=== PATIENT | male | born 1985 | race Caucasian/White ===

== ENCOUNTER 2018-11-13 17:44 | Emergency (ER) | payer SELFPAY ==
[~2018-11-13] VITALS: Ht 172.7 cm; Wt 86.2 kg
[2018-11-13 17:45] VITALS: BP 139/87
[2018-11-13 18:14] LABS: BASO # 0.1 x10^3/uL (0.0-0.2); BASO % 1 % (0-3); EOS # 0.1 x10^3/uL (0.0-0.7); EOS % 1 % (0-3); HEMATOCRIT 39.4 % (39.0-53.0); LYMPH # 1.6 x10^3/uL (1.0-4.8); LYMPH % 38 % (24-48); MEAN CORPUSCULAR HEMOGLOBIN 36 pg (25-35); MEAN CORPUSCULAR HGB CONC 36 g/dL (31-37); MEAN CORPUSCULAR VOLUME 100 fL (79-100); MONO # 0.6 x10^3/uL (0.0-1.1); MONO % 15 % (0-9); NEUT # 1.9 x10^3uL (1.8-7.7); NEUT % 44 % (31-73); PLATELET COUNT 221 x10^3/uL (140-400); RED BLOOD COUNT 3.92 x10^6/uL (4.30-5.70); RED CELL DISTRIBUTION WIDTH 13.7 % (11.5-14.5); WHITE BLOOD COUNT 4.3 x10^3/uL (4.0-11.0)
[2018-11-13 18:21] LABS: BILIRUBIN,URINE NEGATIVE (NEG); CLARITY,URINE CLEAR; COLOR,URINE YELLOW; NITRITE,URINE NEGATIVE (NEG); PROTEIN,URINE NEGATIVE (NEG-TRACE)
[2018-11-13 18:27] LABS: BARBITURATES NEG (NEG); BENZODIAZEPINES NEG (NEG); CANNABINOIDS NEG (NEG); COCAINE NEG (NEG); METHADONE NEG (NEG); OPIATES NEG (NEG); PHENCYCLIDINE NEG (NEG)
[2018-11-13] MEDS ORDERED: ONDANSETRON PF 4 MG/2 ML VIAL. IV ONE (18:30)
[2018-11-13 18:31] LABS: ALBUMIN 3.7 g/dL (3.4-5.0); ALBUMIN/GLOBULIN RATIO 0.9 (1.0-1.7); CREATININE 0.7 mg/dL (0.7-1.3); GFR 129.1; TOTAL BILIRUBIN 0.8 mg/dL (0.2-1.0); TOTAL PROTEIN 7.9 g/dL (6.4-8.2)
[2018-11-13 18:36] LABS: AMPHETAMINE/METHAMPHETAMINE NEG (NEG)
[2018-11-13 18:37] LABS: ACETAMIN < 2 mcg/ml (10-30); ETHANOL 365 mg/dL (0-10); SALIC < 2.8 mg/dL (2.8-20.0)
[2018-11-13 18:39] LABS: POTASSIUM 2.9 mmol/L (3.5-5.1)
[2018-11-13 18:43] LABS: BACTERIA,URINE 0 /HPF (0-FEW); RBC,URINE 0 /HPF (0-2); SQUAMOUS EPITHELIAL CELL,UR FEW /LPF; WBC,URINE 0 /HPF (0-4)
[2018-11-13] MEDS ORDERED: MULTIVIT INFUSN,ADULT 4,VIT K 10 ML, THIAMINE INJ 100 MG, FOLIC ACID INJ 1 MG in IV NOR... IV ONE (19:00)
[2018-11-13] MEDS ORDERED: IV NORMAL SALINE 1000ML BAG 1,000 ML IV ONE (19:15)
[2018-11-13] MEDS ORDERED: POTASSIUM CHLORIDE 20 MEQ TABLET.ER. PO ONE ×2 (19:15→20:00)
--- NOTE | 2018-11-13 19:30 | PHYS DOC ---
Past Medical History Past Medical History: No Pertinent History, Alcoholism (ANTONY MONTAÑO APRN) Past Surgical History: No Surgical History (ANTONY MONTAÑO APRN) Alcohol Use: Heavy Additional Information: 1 PINT OF WHISKEY DAILY Drug Use: None (ANTONY MONTAÑO APRN) Adult General Chief Complaint Chief Complaint: ALCOHOL INTOXICATION HPI HPI Patient is a 33 year old male with history of alcoholism who presents to the ED today to be evaluated after being found intoxicated and sleeping his vehicle by police. Patient is complaining of a mild headache. Denies any other symptoms. He states he drinks heavily. He states he believes he drank half a gallon of vodka today. He states he does not need any help with alcoholism. (ANTONY MONTAÑO APRN) Review of Systems Review of Systems Constitutional: Denies fever or chills [] Eyes: Denies change in visual acuity, redness, or eye pain [] HENT: Denies nasal congestion or sore throat [] Respiratory: Denies cough or shortness of breath [] Cardiovascular: No additional information not addressed in HPI [] GI: Denies abdominal pain, nausea, vomiting, bloody stools or diarrhea [] : Denies dysuria or hematuria [] Musculoskeletal: Denies back pain or joint pain [] Integument: Denies rash or skin lesions [] Neurologic: Denies headache, focal weakness or sensory changes [] Pysch: Alcohol intoxication All other systems were reviewed and found to be within normal limits, except as documented in this note. (ANTONY MONTAÑO APRN) Current Medications Current Medications Current Medications Medications (Trade) Dose Ordered Sig/Toan Start Time Stop Time Status Last Admin Dose Admin Multivitamins 10 ml/Thiamine HCl 100 mg/Folic Acid 1 mg/Sodium Chloride 1,011.2 ml @ 1,000.088 mls/hr 1X ONCE 11/13/18 19:00 11/13/18 19:33 DC 11/13/18 18:17 1,000.088 MLS/HR Ondansetron HCl (Zofran) 4 mg 1X ONCE 11/13/18 18:30 11/13/18 18:31 DC 11/13/18 18:17 4 MG Potassium Chloride (Klor-Con) 40 meq 1X ONCE 11/13/18 20:00 11/13/18 20:00 DC Sodium Chloride 1,000 ml @ 1,000 mls/hr 1X ONCE 11/13/18 19:15 11/13/18 19:33 DC (RUTH YEBOAH DO) Allergies Allergies Allergies Coded Allergies Type Severity Reaction Last Updated Verified No Known Drug Allergies 11/13/18 No (RUTH YEBOAH DO) Physical Exam Physical Exam Constitutional: Well developed, well nourished, no acute distress, non-toxic appearance. [] HENT: Normocephalic, atraumatic, bilateral external ears normal, oropharynx moist, no oral exudates, nose normal. [] Eyes: PERRLA, EOMI, conjunctiva normal, no discharge. [] Neck: Normal range of motion, no tenderness, supple, no stridor. [] Cardiovascular:Heart rate regular rhythm, no murmur [] Lungs & Thorax: Bilateral breath sounds clear to auscultation [] Abdomen: Bowel sounds normal, soft, no tenderness, no masses, no pulsatile masses. [] Skin: Warm, dry, no erythema, no rash. [] Back: No tenderness, no CVA tenderness. [] Extremities: No tenderness, no cyanosis, no clubbing, ROM intact, no edema. [] Neurologic: Alert and oriented X 3, normal motor function, normal sensory function, no focal deficits noted. Cranial nerves II-XII intact Psychologic: Flat affect. Patient appears intoxicated, smells of alcohol. (TRACEUNGANTONY Parker APRN) Current Patient Data Vital Signs Vital Signs Date Time Temp Pulse Resp B/P (MAP) Pulse Ox O2 Delivery O2 Flow Rate FiO2 11/13/18 19:04 108 16 137/91 (106) 96 Room Air 11/13/18 17:45 98.3 98.3 (RUTH YEBOAH DO) Lab Values Laboratory Tests Test 11/13/18 18:04 11/13/18 18:11 White Blood Count 4.3 x10^3/uL (4.0-11.0) Red Blood Count 3.92 x10^6/uL (4.30-5.70) L Hemoglobin 14.0 g/dL (13.0-17.5) Hematocrit 39.4 % (39.0-53.0) Mean Corpuscular Volume 100 fL (79-100) Mean Corpuscular Hemoglobin 36 pg (25-35) H Mean Corpuscular Hemoglobin Concent 36 g/dL (31-37) Red Cell Distribution Width 13.7 % (11.5-14.5) Platelet Count 221 x10^3/uL (140-400) Neutrophils (%) (Auto) 44 % (31-73) Lymphocytes (%) (Auto) 38 % (24-48) Monocytes (%) (Auto) 15 % (0-9) H Eosinophils (%) (Auto) 1 % (0-3) Basophils (%) (Auto) 1 % (0-3) Neutrophils # (Auto) 1.9 x10^3uL (1.8-7.7) Lymphocytes # (Auto) 1.6 x10^3/uL (1.0-4.8) Monocytes # (Auto) 0.6 x10^3/uL (0.0-1.1) Eosinophils # (Auto) 0.1 x10^3/uL (0.0-0.7) Basophils # (Auto) 0.1 x10^3/uL (0.0-0.2) Sodium Level 142 mmol/L (136-145) Potassium Level 2.9 mmol/L (3.5-5.1) *L Chloride Level 101 mmol/L (98-107) Carbon Dioxide Level 29 mmol/L (21-32) Anion Gap 12 (6-14) Blood Urea Nitrogen 4 mg/dL (8-26) L Creatinine 0.7 mg/dL (0.7-1.3) Estimated GFR (Cockcroft-Gault) 129.1 BUN/Creatinine Ratio 6 (6-20) Glucose Level 109 mg/dL (70-99) H Calcium Level 9.0 mg/dL (8.5-10.1) Total Bilirubin 0.8 mg/dL (0.2-1.0) Aspartate Amino Transferase (AST) 340 U/L (15-37) H Alanine Aminotransferase (ALT) 363 U/L (16-63) H Alkaline Phosphatase 98 U/L (46-116) Total Protein 7.9 g/dL (6.4-8.2) Albumin 3.7 g/dL (3.4-5.0) Albumin/Globulin Ratio 0.9 (1.0-1.7) L Lipase 239 U/L (73-393) Salicylates Level < 2.8 mg/dL (2.8-20.0) L Salicylate Last Dose Date Salicylate Last Dose Time Acetaminophen Level < 2 mcg/ml (10-30) L Acetaminophen Last Dose Date Acetaminophen Last Dose Time Ethyl Alcohol Level 365 mg/dL (0-10) H Urine Collection Type Unknown Urine Color Yellow Urine Clarity Clear Urine pH 6.0 Urine Specific [place] <=1.005 Urine Protein Negative mg/dL (NEG-TRACE) Urine Glucose (UA) Negative mg/dL (NEG) Urine Ketones (Stick) Negative mg/dL (NEG) Urine Blood Negative (NEG) Urine Nitrite Negative (NEG) Urine Bilirubin Negative (NEG) Urine Urobilinogen Dipstick 1.0 mg/dL (0.2 mg/dL) Urine Leukocyte Esterase Negative (NEG) Urine RBC 0 /HPF (0-2) Urine WBC 0 /HPF (0-4) Urine Squamous Epithelial Cells Few /LPF Urine Bacteria 0 /HPF (0-FEW) Urine Opiates Screen Neg (NEG) Urine Methadone Screen Neg (NEG) Urine Barbiturates Neg (NEG) Urine Phencyclidine Screen Neg (NEG) Urine Amphetamine/Methamphetamine Neg (NEG) Urine Benzodiazepines Screen Neg (NEG) Urine Cocaine Screen Neg (NEG) Urine Cannabinoids Screen Neg (NEG) Urine Ethyl Alcohol Pos (NEG) Laboratory Tests 11/13/18 18:04 Laboratory Tests 11/13/18 18:04 (RUTH YEBOAH DO) EKG EKG [] (ANTONY MONTAÑO APRN) Radiology/Procedures Radiology/Procedures [] (ANTONY MONTAÑO APRN) Course & Med Decision Making Course & Med Decision Making Pertinent Labs and Imaging studies reviewed. (See chart for details) This is a 33-year-old male patient who presents to the ED today to be evaluated for alcohol intoxication. He was found intoxicated asleep in his vehicle by police. On arrival to the ED patient appears intoxicated. Banana bag was ordered CBC with no acute findings, CMP with potassium of 2.9. Given oral potassium replacement in the ED first dose 40 mEq. Another dose ordered. Blood alcohol level 365. CMP with AST of 340 ALT of 363. Patient is awake requesting to leave AMA. He is alert, oriented, able to make his own decisions. He signed out AMA and left. (ANTONY MONTAÑO APRN) Dragon Disclaimer Dragon Disclaimer This electronic medical record was generated, in whole or in part, using a voice recognition dictation system. (ANTONY MONTAÑO APRN) Departure Departure Impression: Primary Impression: Alcohol intoxication Additional Impressions: Hypokalemia Transaminitis Disposition: AGAINST MEDICAL ADVICE Condition: STABLE Attending Signature Attending Signature I have reviewed the PA/WELDER RAILCAR MECHANIC's note and plan of care. I was available for consulta tion as needed during the patient's visit in the emergency department. I agree with the clinical impression, plan, and disposition. (RUTH YEBOAH DO) Problem Qualifiers Primary Impression: Alcohol intoxication Complication of substance-induced condition: with unspecified complication Qualified Codes: F10.929 - Alcohol use, unspecified with intoxication, unspecified ANTONY MONTAÑO APRN Nov 13, 2018 19:30 RUTH YEBOAH DO Nov 14, 2018 05:25
== END 2018-11-13 19:23 | disposition left against medical advice (07) ==
LOC: ER 17:44
DX: F10.229 Alcohol dependence with intoxication, unspecified (principal); R51 Headache; R74.0 Nonspecific elevation of levels of transaminase and lactic acid dehydrogenase [LDH]; E87.6 Hypokalemia; Y90.8 Blood alcohol level of 240 mg/100 ml or more
CPT/HCPCS: 36415; 80053; 80307; 80329; 81001; 83690; 85025; 96365; 96375; 99284; G0480; J2405; J7030

== ENCOUNTER 2019-02-23 16:19 | Inpatient (IN) | payer SELFPAY ==
[~2019-02-23] VITALS: Ht 170.2 cm; Wt 81.8 kg
[2019-02-23 16:44] LABS: CLARITY,URINE CLEAR; COLOR,URINE ORANGE
[2019-02-23] MEDS ORDERED: FAMOTIDINE 20 MG/2 ML VIAL IVP ONE (16:45)
[2019-02-23] MEDS ORDERED: ONDANSETRON PF 4 MG/2 ML VIAL. IVP ONE (16:45)
[2019-02-23 16:49] LABS: AMPHETAMINE/METHAMPHETAMINE NEG (NEG); BARBITURATES NEG (NEG); BENZODIAZEPINES NEG (NEG); CANNABINOIDS NEG (NEG); COCAINE NEG (NEG); METHADONE NEG (NEG); OPIATES NEG (NEG); PHENCYCLIDINE NEG (NEG)
[2019-02-23 16:57] LABS: BACTERIA,URINE MOD /HPF (0-FEW); RBC,URINE 0 /HPF (0-2); SQUAMOUS EPITHELIAL CELL,UR MANY /LPF; WBC,URINE OCC /HPF (0-4)
[2019-02-23] MEDS ORDERED: MULTIVIT INFUSN,ADULT 4,VIT K 10 ML, THIAMINE INJ 100 MG, FOLIC ACID INJ 1 MG in IV NOR... IV ONE (17:00)
[2019-02-23 17:02] LABS: BILIRUBIN,URINE LARGE (NEG)
[2019-02-23 17:03] LABS: PH,URINE 7.5
[2019-02-23 17:04] LABS: NITRITE,URINE NEGATIVE (NEG); PROTEIN,URINE NEGATIVE (NEG-TRACE)
[2019-02-23 17:16] LABS: BASO % 1 % (0-3); EOS % 0 % (0-3); HEMATOCRIT 37.4 % (39.0-53.0); LYMPH # 0.9 x10^3/uL (1.0-4.8); LYMPH % 11 % (24-48); MEAN CORPUSCULAR HEMOGLOBIN 35 pg (25-35); MEAN CORPUSCULAR HGB CONC 35 g/dL (31-37); MEAN CORPUSCULAR VOLUME 100 fL (79-100); MONO # 1.6 x10^3/uL (0.0-1.1); MONO % 20 % (0-9); NEUT # 5.5 x10^3/uL (1.8-7.7); NEUT % 68 % (31-73); PLATELET COUNT 76 x10^3/uL (140-400); RED BLOOD COUNT 3.76 x10^6/uL (4.30-5.70); RED CELL DISTRIBUTION WIDTH 14.8 % (11.5-14.5); WHITE BLOOD COUNT 8.1 x10^3/uL (4.0-11.0)
[2019-02-23 17:26] LABS: ACETAMIN < 2.0 mcg/ml (10-30); ETHANOL < 10 mg/dL (0-10)
[2019-02-23 17:27] LABS: SALIC < 0.2 mg/dL (2.8-20.0)
[2019-02-23 17:28] LABS: ALBUMIN 2.7 g/dL (3.4-5.0); ALBUMIN/GLOBULIN RATIO 0.6 (1.0-1.7); CALCIUM 9.9 mg/dL (8.5-10.1); CREATININE 0.6 mg/dL (0.7-1.3); GFR 154.2; TOTAL BILIRUBIN 11.3 mg/dL (0.2-1.0); TOTAL PROTEIN 7.6 g/dL (6.4-8.2)
[2019-02-23 17:33] LABS: POTASSIUM 2.7 mmol/L (3.5-5.1)
[2019-02-23 17:44] LABS: % ATYL 1 % (0-0); % BANDS 13 % (0-9); % LYMPHS 9 % (24-48); % MONOS 12 % (0-10); % SEGS 65 % (35-66); PLT ESTIMATE DECREASED (ADEQUATE); TOXIC VACUOLATION SLIGHT
[2019-02-23] MEDS ORDERED: IOHEXOL 300 MG/ML 100ML VIAL. IV ONE (17:45)
[2019-02-23] MEDS ORDERED: CONTRAST GIVEN. MC PRN (17:45)
[2019-02-23] MEDS ORDERED: ONDANSETRON PF 4 MG/2 ML VIAL. IV PRN ×2 (18:00→18:15)
[2019-02-23] MEDS ORDERED: POTASSIUM CL 20MEQ D5-0.9%NACL 1,000 ML IV ONE (18:00)
[2019-02-23] MEDS ORDERED: MORPHINE SULFATE 4 MG/ML VIAL. IV PRN (18:00)
[2019-02-23 18:04] LABS: PROTHROMBIN TIME PATIENT 14.3 SEC (11.7-14.0)
--- NOTE | 2019-02-23 18:06 | PDOC1 ---
History and Physical Date of Admission Date of Admission DATE: 02/23/19 TIME: 18:06 Identification/Chief Complaint Chief Complaint SEEN IN ER , 33 year old male with history of alcoholism who presents to the ED today with multiple complaints. Patient states since Thursday his had tremors.on Thursday but he states // he drank heavily. He states he stopped drinking on Thursday and noted his urine was yellow and his skin was turning yellow. He states his been losing weight because his drinking more than normal. He states today he noted his urine was more yellow and his eyes were even yellow. Denies any abdominal pain. Denies any nausea vomiting. He states his been waiting for bed at the alcohol treatment facility. He reports he drank 2 beers yesterday. HEAVY DRINKING BEGAN AFTER HIS FATHER IN 2014, AND WELL THIS YEAR AFTER HIS DIVORCE AND JOB LOSS Past Medical History Psych: Anxiety, Addictions Dermatology: No pertinent hx Family History Family History: Alcohol Abuse, Other (alcohol abuse) Family History: Parent Social History Smoke: No ALCOHOL: heavy Drugs: None Current Medications Current Medications Current Medications Multivitamins 10 ml/Thiamine HCl 100 mg/Folic Acid 1 mg/Sodium Chloride 1,011.2 ml @ 1,000.088 mls/hr 1X ONCE IV Last administered on 02/23/19at 17:10; Start 02/23/19 at 17:00; Stop 02/23/19 at 18:00; Status DC Ondansetron HCl (Zofran) 4 mg 1X ONCE IVP Last administered on 02/23/19at 17:13; Start 02/23/19 at 16:45; Stop 02/23/19 at 16:46; Status DC Famotidine (Pepcid Vial) 20 mg 1X ONCE IVP Last administered on 02/23/19at 17:14; Start 02/23/19 at 16:45; Stop 02/23/19 at 16:46; Status DC Potassium Chloride (Klor-Con) 40 meq 1X ONCE PO ; Start 02/23/19 at 18:15; Stop 02/23/19 at 18:16 Iohexol (Omnipaque 300 Mg/ml) 75 ml 1X ONCE IV Last administered on 02/23/19at 17:51; Start 02/23/19 at 17:45; Stop 02/23/19 at 17:46; Status DC Info (CONTRAST GIVEN -- Rx MONITORING) 1 each PRN DAILY PRN MC SEE COMMENTS; Start 02/23/19 at 17:45; Stop 02/25/19 at 17:44 Ondansetron HCl (Zofran) 4 mg PRN Q8HRS PRN IV NAUSEA/VOMITING; Start 02/23/19 at 18:00; Stop 02/24/19 at 17:59 Morphine Sulfate (Morphine Sulfate) 4 mg PRN Q2HR PRN IV PAIN; Start 02/23/19 at 18:00; Stop 02/24/19 at 17:59 Potassium Chloride/Dextrose/ Sod Cl 1,000 ml @ 75 mls/hr 1X ONCE IV ; Start 02/23/19 at 18:00; Stop 02/24/19 at 07:19 Lorazepam (Ativan Inj) 2 mg PRN Q15MIN PRN IV SEE COMMENTS; Start 02/23/19 at 18:00 Allergies Allergies: Coded Allergies: No Known Drug Allergies (Unverified , 11/13/18) ROS Review of System Review of Systems Review of Systems Constitutional: Reports weight loss. Denies fever or chills [] Eyes: Denies change in visual acuity, redness, or eye pain [] HENT: Denies nasal congestion or sore throat [] Respiratory: Denies cough or shortness of breath [] Cardiovascular: No additional information not addressed in HPI [] GI: Denies abdominal pain, nausea, vomiting, bloody stools or diarrhea [] : Denies dysuria or hematuria [] Musculoskeletal: Denies back pain or joint pain [] Integument: Reports jaundice. Neurologic: Denies headache, focal weakness or sensory changes [] Psych: Reports alcoholism 14 PT systems were reviewed and found to be within normal limits, except as documented . General: YES: Fatigue, Malaise PSYCHOLOGICAL ROS: YES: Anxiety; No: Behavioral Disorder, Concentration difficultie, Decreased libido, Depression, Disorientation, Hallucinations, Hostility, Irritablity, Memory difficulties, Mood Swings, Obsessive thoughts, Physical abuse, Sexual abuse, Sleep disturbances, Suicidal ideation, Other ALLERGY AND IMMUNOLOGY: No: Hives, Insect Bite Sensitivity, Itchy/Watery Eyes, Nasal Congestion, Post Nasal Drip, Seasonal Allergies, Other Respiratory: No: Cough, Hemoptysis, Orthopnea, Pleuritic Pain, Shortness of breath, SOB with excertion, Sputum Changes, Stridor, Tachypnea, Wheezing, Other Gastrointestinal: Yes Nausea, Yes Other (dark stools) Genitourinary: YES Dysuria Neurological: Yes Behavorial Changes Skin: Yes Dry Skin Physical Exam General: Alert, Oriented X3, Cooperative, No acute distress HEENT: Atraumatic, PERRLA Lungs: Clear to auscultation, Normal air movement Heart: S1S2, RRR, no thrills, no rubs Breasts: Not examined Abdomen: Normal bowel sounds, Soft Rectal Exam: not examined PELVIC: Examination not indicated Extremities: No cyanosis, No edema Skin: No breakdown Neuro: Normal speech, Strength at 5/5 X4 ext, Sensation intact, Cranial nerves 3-12 NL Psych/Mental Status: Mental status NL, Mood NL Vitals Vitals Vital Signs Date Time Temp Pulse Resp B/P (MAP) Pulse Ox O2 Delivery O2 Flow Rate FiO2 02/23/19 16:25 99.2 127 18 130/81 (97) 94 Room Air 99.2 Labs Labs Laboratory Tests Test 02/23/19 16:30 02/23/19 17:00 Urine Collection Type Unknown Urine Color [place] Urine Clarity Clear Urine pH 7.5 Urine Specific [place] 1.015 Urine Protein Negative mg/dL (NEG-TRACE) Urine Glucose (UA) Negative mg/dL (NEG) Urine Ketones (Stick) Trace mg/dL (NEG) Urine Blood Negative (NEG) Urine Nitrite Negative (NEG) Urine Bilirubin Large (NEG) Urine Urobilinogen Dipstick 1.0 mg/dL (0.2 mg/dL) Urine Leukocyte Esterase Small (NEG) Urine RBC 0 /HPF (0-2) Urine WBC Occ /HPF (0-4) Urine Squamous Epithelial Cells Many /LPF Urine Bacteria Mod /HPF (0-FEW) Urine Mucus Marked /LPF Urine Opiates Screen Neg (NEG) Urine Methadone Screen Neg (NEG) Urine Barbiturates Neg (NEG) Urine Phencyclidine Screen Neg (NEG) Urine Amphetamine/Methamphetamine Neg (NEG) Urine Benzodiazepines Screen Neg (NEG) Urine Cocaine Screen Neg (NEG) Urine Cannabinoids Screen Neg (NEG) Urine Ethyl Alcohol Neg (NEG) White Blood Count 8.1 x10^3/uL (4.0-11.0) Red Blood Count 3.76 x10^6/uL (4.30-5.70) Hemoglobin 13.0 g/dL (13.0-17.5) Hematocrit 37.4 % (39.0-53.0) Mean Corpuscular Volume 100 fL (79-100) Mean Corpuscular Hemoglobin 35 pg (25-35) Mean Corpuscular Hemoglobin Concent 35 g/dL (31-37) Red Cell Distribution Width 14.8 % (11.5-14.5) Platelet Count 76 x10^3/uL (140-400) Neutrophils (%) (Auto) 68 % (31-73) Lymphocytes (%) (Auto) 11 % (24-48) Monocytes (%) (Auto) 20 % (0-9) Eosinophils (%) (Auto) 0 % (0-3) Basophils (%) (Auto) 1 % (0-3) Neutrophils # (Auto) 5.5 x10^3/uL (1.8-7.7) Lymphocytes # (Auto) 0.9 x10^3/uL (1.0-4.8) Monocytes # (Auto) 1.6 x10^3/uL (0.0-1.1) Eosinophils # (Auto) 0.0 x10^3/uL (0.0-0.7) Basophils # (Auto) 0.0 x10^3/uL (0.0-0.2) Segmented Neutrophils % 65 % (35-66) Band Neutrophils % 13 % (0-9) Lymphocytes % 9 % (24-48) Atypical Lymphocytes % (Manual) 1 % (0-0) Monocytes % 12 % (0-10) Toxic Vacuolation Slight Platelet Estimate Decreased (ADEQUATE) Sodium Level 131 mmol/L (136-145) Potassium Level 2.7 mmol/L (3.5-5.1) Chloride Level 92 mmol/L (98-107) Carbon Dioxide Level 27 mmol/L (21-32) Anion Gap 12 (6-14) Blood Urea Nitrogen 6 mg/dL (8-26) Creatinine 0.6 mg/dL (0.7-1.3) Estimated GFR (Cockcroft-Gault) 154.2 BUN/Creatinine Ratio 10 (6-20) Glucose Level 102 mg/dL (70-99) Calcium Level 9.9 mg/dL (8.5-10.1) Total Bilirubin 11.3 mg/dL (0.2-1.0) Aspartate Amino Transf (AST/SGOT) 326 U/L (15-37) Alanine Aminotransferase (ALT/SGPT) 141 U/L (16-63) Alkaline Phosphatase 304 U/L (46-116) Total Protein 7.6 g/dL (6.4-8.2) Albumin 2.7 g/dL (3.4-5.0) Albumin/Globulin Ratio 0.6 (1.0-1.7) Lipase 405 U/L (73-393) Salicylates Level < 0.2 mg/dL (2.8-20.0) Salicylate Last Dose Date Unk Salicylate Last Dose Time Unk Acetaminophen Level < 2.0 mcg/ml (10-30) Acetaminophen Last Dose Date Unk Acetaminophen Last Dose Time Unk Ethyl Alcohol Level < 10 mg/dL (0-10) Laboratory Tests Test 02/23/19 16:30 02/23/19 17:00 Urine Collection Type Unknown Urine Color [place] Urine Clarity Clear Urine pH 7.5 Urine Specific [place] 1.015 Urine Protein Negative mg/dL (NEG-TRACE) Urine Glucose (UA) Negative mg/dL (NEG) Urine Ketones (Stick) Trace mg/dL (NEG) Urine Blood Negative (NEG) Urine Nitrite Negative (NEG) Urine Bilirubin Large (NEG) Urine Urobilinogen Dipstick 1.0 mg/dL (0.2 mg/dL) Urine Leukocyte Esterase Small (NEG) Urine RBC 0 /HPF (0-2) Urine WBC Occ /HPF (0-4) Urine Squamous Epithelial Cells Many /LPF Urine Bacteria Mod /HPF (0-FEW) Urine Mucus Marked /LPF Urine Opiates Screen Neg (NEG) Urine Methadone Screen Neg (NEG) Urine Barbiturates Neg (NEG) Urine Phencyclidine Screen Neg (NEG) Urine Amphetamine/Methamphetamine Neg (NEG) Urine Benzodiazepines Screen Neg (NEG) Urine Cocaine Screen Neg (NEG) Urine Cannabinoids Screen Neg (NEG) Urine Ethyl Alcohol Neg (NEG) White Blood Count 8.1 x10^3/uL (4.0-11.0) Red Blood Count 3.76 x10^6/uL (4.30-5.70) Hemoglobin 13.0 g/dL (13.0-17.5) Hematocrit 37.4 % (39.0-53.0) Mean Corpuscular Volume 100 fL (79-100) Mean Corpuscular Hemoglobin 35 pg (25-35) Mean Corpuscular Hemoglobin Concent 35 g/dL (31-37) Red Cell Distribution Width 14.8 % (11.5-14.5) Platelet Count 76 x10^3/uL (140-400) Neutrophils (%) (Auto) 68 % (31-73) Lymphocytes (%) (Auto) 11 % (24-48) Monocytes (%) (Auto) 20 % (0-9) Eosinophils (%) (Auto) 0 % (0-3) Basophils (%) (Auto) 1 % (0-3) Neutrophils # (Auto) 5.5 x10^3/uL (1.8-7.7) Lymphocytes # (Auto) 0.9 x10^3/uL (1.0-4.8) Monocytes # (Auto) 1.6 x10^3/uL (0.0-1.1) Eosinophils # (Auto) 0.0 x10^3/uL (0.0-0.7) Basophils # (Auto) 0.0 x10^3/uL (0.0-0.2) Segmented Neutrophils % 65 % (35-66) Band Neutrophils % 13 % (0-9) Lymphocytes % 9 % (24-48) Atypical Lymphocytes % (Manual) 1 % (0-0) Monocytes % 12 % (0-10) Toxic Vacuolation Slight Platelet Estimate Decreased (ADEQUATE) Sodium Level 131 mmol/L (136-145) Potassium Level 2.7 mmol/L (3.5-5.1) Chloride Level 92 mmol/L (98-107) Carbon Dioxide Level 27 mmol/L (21-32) Anion Gap 12 (6-14) Blood Urea Nitrogen 6 mg/dL (8-26) Creatinine 0.6 mg/dL (0.7-1.3) Estimated GFR (Cockcroft-Gault) 154.2 BUN/Creatinine Ratio 10 (6-20) Glucose Level 102 mg/dL (70-99) Calcium Level 9.9 mg/dL (8.5-10.1) Total Bilirubin 11.3 mg/dL (0.2-1.0) Aspartate Amino Transf (AST/SGOT) 326 U/L (15-37) Alanine Aminotransferase (ALT/SGPT) 141 U/L (16-63) Alkaline Phosphatase 304 U/L (46-116) Total Protein 7.6 g/dL (6.4-8.2) Albumin 2.7 g/dL (3.4-5.0) Albumin/Globulin Ratio 0.6 (1.0-1.7) Lipase 405 U/L (73-393) Salicylates Level < 0.2 mg/dL (2.8-20.0) Salicylate Last Dose Date Unk Salicylate Last Dose Time Unk Acetaminophen Level < 2.0 mcg/ml (10-30) Acetaminophen Last Dose Date Unk Acetaminophen Last Dose Time Unk Ethyl Alcohol Level < 10 mg/dL (0-10) Images Images EX: M EXAM STATUS: REG ER ORD. PHYSICIAN: ANTONY MONTAÑO APRN REASON: r/o pancreatitis, elevated lipase PROCEDURE: CT ABD PELV W/ IV CONTRST ONLY CT abdomen and pelvis with contrast PQRS statement: CT scans at this facility use dose reduction including either automated exposure control, iterative reconstructions, and /or weight based radiation dosing via mA and kV modification when appropriate to reduce radiation dose to as low as reasonably achievable. HISTORY: Pancreatitis, elevated lipase. TECHNIQUE: Helical CT imaging abdomen and pelvis with 75 mL Omnipaque 300 intravenous contrast. Abdomen findings: Elevation or eventration of the right diaphragm with passive atelectasis of the right middle and lower lobes. Hepatomegaly right hepatic lobe length of 24 cm and hypodensity of the liver likely from steatosis. Gallbladder, pancreas, spleen, kidneys and adrenal glands are unremarkable. Linear planar density deep to the umbilical abdominal wall perhaps related to prior hernia repair. Wall thickening of the left-sided colon from the splenic flexure to the rectum with hypervascular enhancement of the rectum likely low-grade colitis. The appendix is negative. No bowel obstruction evident. No abdominal fluid or enlarged adenopathy with subcentimeter retroperitoneal lymph nodes. Small varices along the right abdomen along the right-sided colon and below the right hepatic lobe. The portal and splenic and mesenteric veins demonstrate patent contrast enhancement. Renal veins patent. Lung bases and bones are unremarkable. Pelvis findings: Rectosigmoid wall thickening. Bladder wall is thickened. Prostate and bones are unremarkable. No pelvic fluid or adenopathy. IMPRESSION: 1. Wall thickening of the left-sided colon from the splenic flexure to the rectum and mild hypervascular enhancement of the rectum raising suspicion of low-grade colitis. 2. Appendix is negative. 3. The pancreas is unremarkable. 4. Hepatomegaly and probable liver steatosis. Electronically signed by: Breezy Sotelo MD (02/23/2019 6:10 PM) [facility] DICTATED and SIGNED BY: BREEZY SOTELO MD DATE: 02/23/191809 VTE Prophylaxis Ordered VTE Prophylaxis Devices: Yes VTE Pharmacological Prophylaxi: Yes Assessment/Plan Assessment/Plan impression 1. severe alcohol abuse 2. severe hypokalemia 3. alcohol associated liver disease 4. Wall thickening of the left-sided colon from the splenic flexure to the rectum and mild hypervascular enhancement of the rectum raising suspicion of low-grade colitis. 5. ELEVATED LIPASE 6. Hepatomegaly and probable HEPATIC steatosis 7. Depression// anxiety plan admit ct abd/ pelvis REVIEWED banana bag, iv fluid support alcohol withdrawal precautions dvt prophylaxis gi prophylaxis REPLACE K GI CONSULT 74 MIN PT EXAM, CHART REVIEW, > 50% OF TIME SPENT WITH EXAM, CHART REVIEW, PT CARE COORDINATION MUNA KATHLEEN MD Feb 23, 2019 18:06
--- NOTE | 2019-02-23 18:12 | PHYS DOC ---
Past Medical History Past Medical History: Alcoholism, Anxiety (ANTONY MONTAÑO APRN) Past Surgical History: No Surgical History Additional Past Surgical Histo: hernia repair (ANTONY MONTAÑO APRN) Alcohol Use: Heavy Drug Use: None (ANTONY MONTAÑO APRN) Adult General Chief Complaint Chief Complaint: JAUNDICE HPI HPI Patient is a 33 year old male with history of alcoholism who presents to the ED today with multiple complaints. Patient states since Thursday his had tremors. He does not know when the tremors began on Thursday but he states later on that day he drank heavily. He states he stopped drinking on Thursday and noted his urine was yellow and his skin was turning yellow. He states his been losing weight because his drinking more than normal. He states today he noted his urine was more yellow and his eyes were even yellow. Denies any abdominal pain. Denies any nausea vomiting. He states his been waiting for bed at the [facility] facility. He reports he drank 2 beers yesterday. (ANTONY MONTAÑO APRN) Review of Systems Review of Systems Constitutional: Reports weight loss. Denies fever or chills [] Eyes: Denies change in visual acuity, redness, or eye pain [] HENT: Denies nasal congestion or sore throat [] Respiratory: Denies cough or shortness of breath [] Cardiovascular: No additional information not addressed in HPI [] GI: Denies abdominal pain, nausea, vomiting, bloody stools or diarrhea [] : Denies dysuria or hematuria [] Musculoskeletal: Denies back pain or joint pain [] Integument: Reports jaundice. Neurologic: Denies headache, focal weakness or sensory changes [] Psych: Reports alcoholism All other systems were reviewed and found to be within normal limits, except as documented in this note. (ANTONY MONTAÑO APRN) Current Medications Current Medications Current Medications Medications (Trade) Dose Ordered Sig/Toan Start Time Stop Time Status Last Admin Dose Admin Acetaminophen (Tylenol) 650 mg PRN Q4HRS PRN 02/23/19 18:15 Albuterol Sulfate (Ventolin Neb Soln) 2.5 mg PRN Q4HRS PRN 02/23/19 18:15 Clonidine HCl (Catapres) 0.1 mg PRN Q6HRS PRN 02/23/19 18:15 Docusate Sodium (Colace) 100 mg PRN BID PRN 02/23/19 18:15 Enoxaparin Sodium (Lovenox 40mg Syringe) 40 mg DAILY 02/24/19 09:00 UNV Famotidine (Pepcid Vial) 20 mg 1X ONCE 02/23/19 16:45 02/23/19 16:46 DC 02/23/19 17:14 20 MG Folic Acid (Folic Acid) 1 mg DAILY 02/26/19 09:00 Guaifenesin (Robitussin) 200 mg PRN Q4HRS PRN 02/23/19 18:15 Info (CONTRAST GIVEN -- Rx MONITORING) 1 each PRN DAILY PRN 02/23/19 17:45 02/25/19 17:44 Iohexol (Omnipaque 300 Mg/ml) 75 ml 1X ONCE 02/23/19 17:45 02/23/19 17:46 DC 02/23/19 17:51 75 ML Lorazepam (Ativan Inj) 2 mg PRN Q4HRS PRN 02/23/19 18:15 UNV Lorazepam (Ativan) 0.5 mg PRN Q4HRS PRN 02/23/19 18:15 Morphine Sulfate (Morphine Sulfate) 4 mg PRN Q2HR PRN 02/23/19 18:00 02/24/19 17:59 Multivitamins (Thera M Plus) 1 tab DAILY 02/26/19 09:00 Multivitamins 10 ml/Thiamine HCl 100 mg/Folic Acid 1 mg/Sodium Chloride 1,011.2 ml @ 100 mls/ hr DAILY 02/24/19 09:00 02/25/19 19:07 Ondansetron HCl (Zofran) 4 mg PRN Q4HRS PRN 02/23/19 18:15 Potassium Chloride/Dextrose/ Sod Cl 1,000 ml @ 75 mls/hr 1X ONCE 02/23/19 18:00 02/24/19 07:19 Potassium Chloride (Klor-Con) 40 meq 1X ONCE 02/23/19 18:15 02/23/19 18:17 DC 02/23/19 18:11 40 MEQ Sodium Chloride (Normal Saline Flush) 3 ml QSHIFT PRN 02/23/19 18:15 Thiamine Mononitrate (Vitamin B-1) 100 mg DAILY 02/26/19 09:00 (MIRYAM MCDONALD MD) Allergies Allergies Allergies Coded Allergies Type Severity Reaction Last Updated Verified No Known Drug Allergies 11/13/18 No (MIRYAM MCDONALD MD) Physical Exam Physical Exam Constitutional: Well developed, well nourished, no acute distress, non-toxic appearance. [] HENT: Normocephalic, atraumatic, bilateral external ears normal, oropharynx moist, no oral exudates, nose normal. [] Eyes: PERRLA, EOMI, sclerae icterus bilaterally, no discharge. [] Neck: Normal range of motion, no tenderness, supple, no stridor. [] Cardiovascular:Heart rate regular rhythm, no murmur [] Lungs & Thorax: Bilateral breath sounds clear to auscultation [] Abdomen: Rounded abdomen. Bowel sounds normal, soft, no tenderness, no masses, no pulsatile masses. [] Skin: Warm, dry, skin appears tenderness Back: No tenderness, no CVA tenderness. [] Extremities: No tenderness, no cyanosis, no clubbing, ROM intact, no edema. [] Neurologic: Alert and oriented X 3, normal motor function, normal sensory function, no focal deficits noted. [] Psychologic: Affect normal, judgement normal, mood normal. [] (ANTONY MONTAÑO APRN) Current Patient Data Vital Signs Vital Signs Date Time Temp Pulse Resp B/P (MAP) Pulse Ox O2 Delivery O2 Flow Rate FiO2 02/23/19 16:25 99.2 127 18 130/81 (97) 94 Room Air 99.2 (MIRYAM MCDONALD MD) Lab Values Laboratory Tests Test 02/23/19 16:30 02/23/19 17:00 Urine Collection Type Unknown Urine Color [place] Urine Clarity Clear Urine pH 7.5 Urine Specific [place] 1.015 Urine Protein Negative mg/dL (NEG-TRACE) Urine Glucose (UA) Negative mg/dL (NEG) Urine Ketones (Stick) Trace mg/dL (NEG) Urine Blood Negative (NEG) Urine Nitrite Negative (NEG) Urine Bilirubin Large (NEG) Urine Urobilinogen Dipstick 1.0 mg/dL (0.2 mg/dL) Urine Leukocyte Esterase Small (NEG) Urine RBC 0 /HPF (0-2) Urine WBC Occ /HPF (0-4) Urine Squamous Epithelial Cells Many /LPF Urine Bacteria Mod /HPF (0-FEW) Urine Mucus Marked /LPF Urine Opiates Screen Neg (NEG) Urine Methadone Screen Neg (NEG) Urine Barbiturates Neg (NEG) Urine Phencyclidine Screen Neg (NEG) Urine Amphetamine/Methamphetamine Neg (NEG) Urine Benzodiazepines Screen Neg (NEG) Urine Cocaine Screen Neg (NEG) Urine Cannabinoids Screen Neg (NEG) Urine Ethyl Alcohol Neg (NEG) White Blood Count 8.1 x10^3/uL (4.0-11.0) Red Blood Count 3.76 x10^6/uL (4.30-5.70) L Hemoglobin 13.0 g/dL (13.0-17.5) Hematocrit 37.4 % (39.0-53.0) L Mean Corpuscular Volume 100 fL (79-100) Mean Corpuscular Hemoglobin 35 pg (25-35) Mean Corpuscular Hemoglobin Concent 35 g/dL (31-37) Red Cell Distribution Width 14.8 % (11.5-14.5) H Platelet Count 76 x10^3/uL (140-400) L Neutrophils (%) (Auto) 68 % (31-73) Lymphocytes (%) (Auto) 11 % (24-48) L Monocytes (%) (Auto) 20 % (0-9) H Eosinophils (%) (Auto) 0 % (0-3) Basophils (%) (Auto) 1 % (0-3) Neutrophils # (Auto) 5.5 x10^3/uL (1.8-7.7) Lymphocytes # (Auto) 0.9 x10^3/uL (1.0-4.8) L Monocytes # (Auto) 1.6 x10^3/uL (0.0-1.1) H Eosinophils # (Auto) 0.0 x10^3/uL (0.0-0.7) Basophils # (Auto) 0.0 x10^3/uL (0.0-0.2) Segmented Neutrophils % 65 % (35-66) Band Neutrophils % 13 % (0-9) H Lymphocytes % 9 % (24-48) L Atypical Lymphocytes % (Manual) 1 % (0-0) H Monocytes % 12 % (0-10) H Toxic Vacuolation Slight Platelet Estimate Decreased (ADEQUATE) Prothrombin Time 14.3 SEC (11.7-14.0) H Prothrombin Time INR 1.1 (0.8-1.1) Activated Partial Thromboplast Time 32 SEC (24-38) Sodium Level 131 mmol/L (136-145) L Potassium Level 2.7 mmol/L (3.5-5.1) *L Chloride Level 92 mmol/L (98-107) L Carbon Dioxide Level 27 mmol/L (21-32) Anion Gap 12 (6-14) Blood Urea Nitrogen 6 mg/dL (8-26) L Creatinine 0.6 mg/dL (0.7-1.3) L Estimated GFR (Cockcroft-Gault) 154.2 BUN/Creatinine Ratio 10 (6-20) Glucose Level 102 mg/dL (70-99) H Calcium Level 9.9 mg/dL (8.5-10.1) Total Bilirubin 11.3 mg/dL (0.2-1.0) H Aspartate Amino Transferase (AST) 326 U/L (15-37) H Alanine Aminotransferase (ALT) 141 U/L (16-63) H Alkaline Phosphatase 304 U/L (46-116) H Total Protein 7.6 g/dL (6.4-8.2) Albumin 2.7 g/dL (3.4-5.0) L Albumin/Globulin Ratio 0.6 (1.0-1.7) L Lipase 405 U/L (73-393) H Salicylates Level < 0.2 mg/dL (2.8-20.0) L Salicylate Last Dose Date Unk Salicylate Last Dose Time Unk Acetaminophen Level < 2.0 mcg/ml (10-30) L Acetaminophen Last Dose Date Unk Acetaminophen Last Dose Time Unk Ethyl Alcohol Level < 10 mg/dL (0-10) Laboratory Tests 02/23/19 17:00 Laboratory Tests 02/23/19 17:00 (MIRYAM MCDONALD MD) EKG EKG [] (ANTONY MONTAÑO APRN) Radiology/Procedures Radiology/Procedures [] (ANTONY MONTAÑO APRN) Course & Med Decision Making Course & Med Decision Making Pertinent Labs and Imaging studies reviewed. (See chart for details) This is a 33-year-old male patient with history of alcoholism presenting to the ED today with multiple complaints including yellow urine and yellow sking since Thursday, drinking heavily a on Thursday as well as yesterday. Complaining of tremors noted Thursday due to withdrawals unfortunately started drinking again. Patient was started on a banana bag on arrival to the ED. CBC with normal WBC, CMP with sodium of 131, AST 326, ALT 141, ALT 304 potassium is 2.7, lipase 405. Urine analysis noted for large amount of bilirubin, CMP with bilirubin of 11.3. Patient appears jaundiced. Given Potassium by mouth and ordered NS with K Results were communicated to patient and informed he will be admitted. Patient states we need to give him time to think about it because his considering leaving AMA-talked to patient at length about the importance of staying Consulted with Dr. Gracia who accepted patient for admission GI consult placed Pending CT of the abdomen and pelvic PAT team consulted. (ANTONY MONTAÑO APRN) Dragon Disclaimer Dragon Disclaimer This electronic medical record was generated, in whole or in part, using a voice recognition dictation system. (ANTONY MONTAÑO APRN) Attending Signature I have participated in the care of this patient and I have reviewed and agree with all pertinent clinical information above including history, exam, and recommendations. (MIRYAM MCDONALD MD) Departure Departure Impression: Primary Impression: Alcohol intoxication Additional Impressions: Transaminitis Hypokalemia Jaundice Disposition: ADMITTED INPATIENT Condition: STABLE Referrals: NO PCP (PCP) Problem Qualifiers Primary Impression: Alcohol intoxication Complication of substance-induced condition: with unspecified complication Qualified Codes: F10.929 - Alcohol use, unspecified with intoxication, unspecified ANTONY MONTAÑO APRN Feb 23, 2019 18:12 MIRYAM MCDONALD MD Feb 23, 2019 18:25
--- NOTE | 2019-02-23 18:14 | RAD ---
CT abdomen and pelvis with contrast PQRS statement: CT scans at this facility use dose reduction including either automated exposure control, iterative reconstructions, and /or weight based radiation dosing via mA and kV modification when appropriate to reduce radiation dose to as low as reasonably achievable. HISTORY: Pancreatitis, elevated lipase. TECHNIQUE: Helical CT imaging abdomen and pelvis with 75 mL Omnipaque 300 intravenous contrast. Abdomen findings: Elevation or eventration of the right diaphragm with passive atelectasis of the right middle and lower lobes. Hepatomegaly right hepatic lobe length of 24 cm and hypodensity of the liver likely from steatosis. Gallbladder, pancreas, spleen, kidneys and adrenal glands are unremarkable. Linear planar density deep to the umbilical abdominal wall perhaps related to prior hernia repair. Wall thickening of the left-sided colon from the splenic flexure to the rectum with hypervascular enhancement of the rectum likely low-grade colitis. The appendix is negative. No bowel obstruction evident. No abdominal fluid or enlarged adenopathy with subcentimeter retroperitoneal lymph nodes. Small varices along the right abdomen along the right-sided colon and below the right hepatic lobe. The portal and splenic and mesenteric veins demonstrate patent contrast enhancement. Renal veins patent. Lung bases and bones are unremarkable. Pelvis findings: Rectosigmoid wall thickening. Bladder wall is thickened. Prostate and bones are unremarkable. No pelvic fluid or adenopathy. IMPRESSION: 1. Wall thickening of the left-sided colon from the splenic flexure to the rectum and mild hypervascular enhancement of the rectum raising suspicion of low-grade colitis. 2. Appendix is negative. 3. The pancreas is unremarkable. 4. Hepatomegaly and probable liver steatosis. Electronically signed by: Breezy Sotelo MD (02/23/2019 6:10 PM) [facility]
[2019-02-23] MEDS ORDERED: ALBUTEROL SULFATE 2.5 MG/3 ML NEBU. NEB PRN (18:15)
[2019-02-23] MEDS ORDERED: LORazepam 0.5 MG TABLET PO PRN (18:15)
[2019-02-23] MEDS ORDERED: 0.9 % SODIUM CHLORIDE 10 ML DISP.SYRIN. IV PRN (18:15)
[2019-02-23] MEDS ORDERED: LORazepam 1 MG TABLET PO PRN ×2 (18:15)
[2019-02-23] MEDS ORDERED: DOCUSATE SODIUM 100 MG CAPSULE. PO PRN (18:15)
[2019-02-23] MEDS ORDERED: cloNIDine HCL 0.1 MG TABLET PO PRN ×2 (18:15)
[2019-02-23] MEDS ORDERED: guaiFENesin ORAL 200 MG/10 ML LIQUID. PO PRN (18:15)
[2019-02-23] MEDS ORDERED: POTASSIUM CHLORIDE 20 MEQ TABLET.ER. PO ONE ×2 (18:15→19:45)
[2019-02-23] MEDS ORDERED: ACETAMINOPHEN 325 MG TABLET. PO PRN (18:15)
[2019-02-23 20:10] VITALS: BP 125/79
[2019-02-23 23:20] VITALS: BP 115/79
[2019-02-24] MEDS: PANTOPRAZOLE 40 MG TABLET.DR. PO SCH ×2 (02:50→09:38)
[2019-02-24 03:28] VITALS: BP 117/78
[2019-02-24 07:13] LABS: BASO % 1 % (0-3); EOS % 1 % (0-3); HEMATOCRIT 35.8 % (39.0-53.0); HEMOGLOBIN 12.3 g/dL (13.0-17.5); LYMPH # 1.1 x10^3/uL (1.0-4.8); LYMPH % 19 % (24-48); MEAN CORPUSCULAR HEMOGLOBIN 35 pg (25-35); MEAN CORPUSCULAR HGB CONC 34 g/dL (31-37); MEAN CORPUSCULAR VOLUME 100 fL (79-100); MONO % 18 % (0-9); NEUT # 3.5 x10^3/uL (1.8-7.7); NEUT % 62 % (31-73); PLATELET COUNT 74 x10^3/uL (140-400); RED BLOOD COUNT 3.56 x10^6/uL (4.30-5.70); RED CELL DISTRIBUTION WIDTH 14.7 % (11.5-14.5); WHITE BLOOD COUNT 5.7 x10^3/uL (4.0-11.0)
--- NOTE | 2019-02-24 07:28 | EKG ---
[facility] [address] [place] [address] Test Date: 2019-02-23 Test Time: 19:01:48 Pat Name: NIKA BROWN Department: Room: [facility] Gender: M Toll Operator: : 1985 Requested By: MUNA KATHLEEN Order Number: [id number] Reading MD: Pato Quiroz MD Measurements Intervals [place] Rate: 107 P: 52 [place]: 128 QRS: 19 QRSD: 76 T: 27 QT: 344 QTc: 465 Interpretive Statements SINUS TACHYCARDIA Electronically Signed On 03-01-2019 15:40:28 CDT by Pato Quiroz MD
[2019-02-24 07:43] LABS: CALCIUM 8.7 mg/dL (8.5-10.1); CREATININE 0.7 mg/dL (0.7-1.3); GFR 129.1; POTASSIUM 3.3 mmol/L (3.5-5.1)
[2019-02-24 07:55] VITALS: BP 108/80
--- NOTE | 2019-02-24 08:36 | PDOC ---
PROGRESS NOTES History of Present Illness History of Present Illness VTE Prophylaxis Ordered VTE Prophylaxis Devices: Yes VTE Pharmacological Prophylaxi: Yes Assessment/Plan Assessment/Plan impression 1. severe alcohol abuse 2. severe hypokalemia 3. 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 Wall thickening of the left-sided colon from the splenic flexure to the rectum and mild hypervascular enhancement of the rectum raising suspicion of low-grade colitis. 5. ELEVATED LIPASE 6. Hepatomegaly and probable HEPATIC steatosis 7. Depression// anxiety 8. SEVERE protein-caloric malnutrition 9. THROMBOCYTOPENIA sec splenomegaly likely// etoh plan admit ct abd/ pelvis REVIEWED banana bag, iv fluid support alcohol withdrawal precautions dvt prophylaxis gi prophylaxis REPLACE K GI CONSULT abd sono acute hepatitis dx panel stool culture 37 MIN PT EXAM, CHART REVIEW, > 50% OF TIME SPENT WITH EXAM, CHART REVIEW, PT CARE COORDINATION Vitals Vitals Vital Signs Date Time Temp Pulse Resp B/P (MAP) Pulse Ox O2 Delivery O2 Flow Rate FiO2 02/24/19 07:55 98.6 90 20 108/80 (89) 97 Room Air 98.6 Physical Exam General: Alert, Oriented X3, Cooperative, No acute distress Heart: Regular rate, Normal S1, Normal S2 Lungs: Clear Abdomen: Normal bowel sounds, Soft, No tenderness Extremities: No clubbing, No cyanosis, No edema Skin: No breakdown Labs LABS Laboratory Tests Test 02/23/19 16:30 02/23/19 17:00 02/24/19 06:05 Urine Collection Type Unknown Urine Color [place] Urine Clarity Clear Urine pH 7.5 Urine Specific [place] 1.015 Urine Protein Negative mg/dL (NEG-TRACE) Urine Glucose (UA) Negative mg/dL (NEG) Urine Ketones (Stick) Trace mg/dL (NEG) Urine Blood Negative (NEG) Urine Nitrite Negative (NEG) Urine Bilirubin Large (NEG) Urine Urobilinogen Dipstick 1.0 mg/dL (0.2 mg/dL) Urine Leukocyte Esterase Small (NEG) Urine RBC 0 /HPF (0-2) Urine WBC Occ /HPF (0-4) Urine Squamous Epithelial Cells Many /LPF Urine Bacteria Mod /HPF (0-FEW) Urine Mucus Marked /LPF Urine Opiates Screen Neg (NEG) Urine Methadone Screen Neg (NEG) Urine Barbiturates Neg (NEG) Urine Phencyclidine Screen Neg (NEG) Urine Amphetamine/Methamphetamine Neg (NEG) Urine Benzodiazepines Screen Neg (NEG) Urine Cocaine Screen Neg (NEG) Urine Cannabinoids Screen Neg (NEG) Urine Ethyl Alcohol Neg (NEG) White Blood Count 8.1 x10^3/uL (4.0-11.0) 5.7 x10^3/uL (4.0-11.0) Red Blood Count 3.76 x10^6/uL (4.30-5.70) 3.56 x10^6/uL (4.30-5.70) Hemoglobin 13.0 g/dL (13.0-17.5) 12.3 g/dL (13.0-17.5) Hematocrit 37.4 % (39.0-53.0) 35.8 % (39.0-53.0) Mean Corpuscular Volume 100 fL (79-100) 100 fL (79-100) Mean Corpuscular Hemoglobin 35 pg (25-35) 35 pg (25-35) Mean Corpuscular Hemoglobin Concent 35 g/dL (31-37) 34 g/dL (31-37) Red Cell Distribution Width 14.8 % (11.5-14.5) 14.7 % (11.5-14.5) Platelet Count 76 x10^3/uL (140-400) 74 x10^3/uL (140-400) Neutrophils (%) (Auto) 68 % (31-73) 62 % (31-73) Lymphocytes (%) (Auto) 11 % (24-48) 19 % (24-48) Monocytes (%) (Auto) 20 % (0-9) 18 % (0-9) Eosinophils (%) (Auto) 0 % (0-3) 1 % (0-3) Basophils (%) (Auto) 1 % (0-3) 1 % (0-3) Neutrophils # (Auto) 5.5 x10^3/uL (1.8-7.7) 3.5 x10^3/uL (1.8-7.7) Lymphocytes # (Auto) 0.9 x10^3/uL (1.0-4.8) 1.1 x10^3/uL (1.0-4.8) Monocytes # (Auto) 1.6 x10^3/uL (0.0-1.1) 1.0 x10^3/uL (0.0-1.1) Eosinophils # (Auto) 0.0 x10^3/uL (0.0-0.7) 0.0 x10^3/uL (0.0-0.7) Basophils # (Auto) 0.0 x10^3/uL (0.0-0.2) 0.0 x10^3/uL (0.0-0.2) Segmented Neutrophils % 65 % (35-66) Band Neutrophils % 13 % (0-9) Lymphocytes % 9 % (24-48) Atypical Lymphocytes % (Manual) 1 % (0-0) Monocytes % 12 % (0-10) Toxic Vacuolation Slight Platelet Estimate Decreased (ADEQUATE) Prothrombin Time 14.3 SEC (11.7-14.0) Prothromb Time International Ratio 1.1 (0.8-1.1) Activated Partial Thromboplast Time 32 SEC (24-38) Sodium Level 131 mmol/L (136-145) 136 mmol/L (136-145) Potassium Level 2.7 mmol/L (3.5-5.1) 3.3 mmol/L (3.5-5.1) Chloride Level 92 mmol/L (98-107) 100 mmol/L (98-107) Carbon Dioxide Level 27 mmol/L (21-32) 30 mmol/L (21-32) Anion Gap 12 (6-14) 6 (6-14) Blood Urea Nitrogen 6 mg/dL (8-26) 4 mg/dL (8-26) Creatinine 0.6 mg/dL (0.7-1.3) 0.7 mg/dL (0.7-1.3) Estimated GFR (Cockcroft-Gault) 154.2 129.1 BUN/Creatinine Ratio 10 (6-20) Glucose Level 102 mg/dL (70-99) 78 mg/dL (70-99) Calcium Level 9.9 mg/dL (8.5-10.1) 8.7 mg/dL (8.5-10.1) Total Bilirubin 11.3 mg/dL (0.2-1.0) Aspartate Amino Transf (AST/SGOT) 326 U/L (15-37) Alanine Aminotransferase (ALT/SGPT) 141 U/L (16-63) Alkaline Phosphatase 304 U/L (46-116) Total Protein 7.6 g/dL (6.4-8.2) Albumin 2.7 g/dL (3.4-5.0) Albumin/Globulin Ratio 0.6 (1.0-1.7) Lipase 405 U/L (73-393) Salicylates Level < 0.2 mg/dL (2.8-20.0) Salicylate Last Dose Date Unk Salicylate Last Dose Time Unk Acetaminophen Level < 2.0 mcg/ml (10-30) Acetaminophen Last Dose Date Unk Acetaminophen Last Dose Time Unk Ethyl Alcohol Level < 10 mg/dL (0-10) Assessment and Plan Assessmemt and Plan Problems Medical Problems: (1) Alcohol intoxication Status: Acute (2) Hypokalemia Status: Acute (3) Jaundice Status: Acute (4) Transaminitis Status: Acute Comment Review of Relevant I have reviewed the following items robel (where applicable) has been applied. Labs Laboratory Tests Test 02/23/19 16:30 02/23/19 17:00 02/24/19 06:05 Urine Collection Type Unknown Urine Color [place] Urine Clarity Clear Urine pH 7.5 Urine Specific [place] 1.015 Urine Protein Negative mg/dL (NEG-TRACE) Urine Glucose (UA) Negative mg/dL (NEG) Urine Ketones (Stick) Trace mg/dL (NEG) Urine Blood Negative (NEG) Urine Nitrite Negative (NEG) Urine Bilirubin Large (NEG) Urine Urobilinogen Dipstick 1.0 mg/dL (0.2 mg/dL) Urine Leukocyte Esterase Small (NEG) Urine RBC 0 /HPF (0-2) Urine WBC Occ /HPF (0-4) Urine Squamous Epithelial Cells Many /LPF Urine Bacteria Mod /HPF (0-FEW) Urine Mucus Marked /LPF Urine Opiates Screen Neg (NEG) Urine Methadone Screen Neg (NEG) Urine Barbiturates Neg (NEG) Urine Phencyclidine Screen Neg (NEG) Urine Amphetamine/Methamphetamine Neg (NEG) Urine Benzodiazepines Screen Neg (NEG) Urine Cocaine Screen Neg (NEG) Urine Cannabinoids Screen Neg (NEG) Urine Ethyl Alcohol Neg (NEG) White Blood Count 8.1 x10^3/uL (4.0-11.0) 5.7 x10^3/uL (4.0-11.0) Red Blood Count 3.76 x10^6/uL (4.30-5.70) 3.56 x10^6/uL (4.30-5.70) Hemoglobin 13.0 g/dL (13.0-17.5) 12.3 g/dL (13.0-17.5) Hematocrit 37.4 % (39.0-53.0) 35.8 % (39.0-53.0) Mean Corpuscular Volume 100 fL (79-100) 100 fL (79-100) Mean Corpuscular Hemoglobin 35 pg (25-35) 35 pg (25-35) Mean Corpuscular Hemoglobin Concent 35 g/dL (31-37) 34 g/dL (31-37) Red Cell Distribution Width 14.8 % (11.5-14.5) 14.7 % (11.5-14.5) Platelet Count 76 x10^3/uL (140-400) 74 x10^3/uL (140-400) Neutrophils (%) (Auto) 68 % (31-73) 62 % (31-73) Lymphocytes (%) (Auto) 11 % (24-48) 19 % (24-48) Monocytes (%) (Auto) 20 % (0-9) 18 % (0-9) Eosinophils (%) (Auto) 0 % (0-3) 1 % (0-3) Basophils (%) (Auto) 1 % (0-3) 1 % (0-3) Neutrophils # (Auto) 5.5 x10^3/uL (1.8-7.7) 3.5 x10^3/uL (1.8-7.7) Lymphocytes # (Auto) 0.9 x10^3/uL (1.0-4.8) 1.1 x10^3/uL (1.0-4.8) Monocytes # (Auto) 1.6 x10^3/uL (0.0-1.1) 1.0 x10^3/uL (0.0-1.1) Eosinophils # (Auto) 0.0 x10^3/uL (0.0-0.7) 0.0 x10^3/uL (0.0-0.7) Basophils # (Auto) 0.0 x10^3/uL (0.0-0.2) 0.0 x10^3/uL (0.0-0.2) Segmented Neutrophils % 65 % (35-66) Band Neutrophils % 13 % (0-9) Lymphocytes % 9 % (24-48) Atypical Lymphocytes % (Manual) 1 % (0-0) Monocytes % 12 % (0-10) Toxic Vacuolation Slight Platelet Estimate Decreased (ADEQUATE) Prothrombin Time 14.3 SEC (11.7-14.0) Prothromb Time International Ratio 1.1 (0.8-1.1) Activated Partial Thromboplast Time 32 SEC (24-38) Sodium Level 131 mmol/L (136-145) 136 mmol/L (136-145) Potassium Level 2.7 mmol/L (3.5-5.1) 3.3 mmol/L (3.5-5.1) Chloride Level 92 mmol/L (98-107) 100 mmol/L (98-107) Carbon Dioxide Level 27 mmol/L (21-32) 30 mmol/L (21-32) Anion Gap 12 (6-14) 6 (6-14) Blood Urea Nitrogen 6 mg/dL (8-26) 4 mg/dL (8-26) Creatinine 0.6 mg/dL (0.7-1.3) 0.7 mg/dL (0.7-1.3) Estimated GFR (Cockcroft-Gault) 154.2 129.1 BUN/Creatinine Ratio 10 (6-20) Glucose Level 102 mg/dL (70-99) 78 mg/dL (70-99) Calcium Level 9.9 mg/dL (8.5-10.1) 8.7 mg/dL (8.5-10.1) Total Bilirubin 11.3 mg/dL (0.2-1.0) Aspartate Amino Transf (AST/SGOT) 326 U/L (15-37) Alanine Aminotransferase (ALT/SGPT) 141 U/L (16-63) Alkaline Phosphatase 304 U/L (46-116) Total Protein 7.6 g/dL (6.4-8.2) Albumin 2.7 g/dL (3.4-5.0) Albumin/Globulin Ratio 0.6 (1.0-1.7) Lipase 405 U/L (73-393) Salicylates Level < 0.2 mg/dL (2.8-20.0) Salicylate Last Dose Date Unk Salicylate Last Dose Time Unk Acetaminophen Level < 2.0 mcg/ml (10-30) Acetaminophen Last Dose Date Unk Acetaminophen Last Dose Time Unk Ethyl Alcohol Level < 10 mg/dL (0-10) Laboratory Tests Test 02/23/19 16:30 02/23/19 17:00 02/24/19 06:05 Urine Collection Type Unknown Urine Color [place] Urine Clarity Clear Urine pH 7.5 Urine Specific [place] 1.015 Urine Protein Negative mg/dL (NEG-TRACE) Urine Glucose (UA) Negative mg/dL (NEG) Urine Ketones (Stick) Trace mg/dL (NEG) Urine Blood Negative (NEG) Urine Nitrite Negative (NEG) Urine Bilirubin Large (NEG) Urine Urobilinogen Dipstick 1.0 mg/dL (0.2 mg/dL) Urine Leukocyte Esterase Small (NEG) Urine RBC 0 /HPF (0-2) Urine WBC Occ /HPF (0-4) Urine Squamous Epithelial Cells Many /LPF Urine Bacteria Mod /HPF (0-FEW) Urine Mucus Marked /LPF Urine Opiates Screen Neg (NEG) Urine Methadone Screen Neg (NEG) Urine Barbiturates Neg (NEG) Urine Phencyclidine Screen Neg (NEG) Urine Amphetamine/Methamphetamine Neg (NEG) Urine Benzodiazepines Screen Neg (NEG) Urine Cocaine Screen Neg (NEG) Urine Cannabinoids Screen Neg (NEG) Urine Ethyl Alcohol Neg (NEG) White Blood Count 8.1 x10^3/uL (4.0-11.0) 5.7 x10^3/uL (4.0-11.0) Red Blood Count 3.76 x10^6/uL (4.30-5.70) 3.56 x10^6/uL (4.30-5.70) Hemoglobin 13.0 g/dL (13.0-17.5) 12.3 g/dL (13.0-17.5) Hematocrit 37.4 % (39.0-53.0) 35.8 % (39.0-53.0) Mean Corpuscular Volume 100 fL (79-100) 100 fL (79-100) Mean Corpuscular Hemoglobin 35 pg (25-35) 35 pg (25-35) Mean Corpuscular Hemoglobin Concent 35 g/dL (31-37) 34 g/dL (31-37) Red Cell Distribution Width 14.8 % (11.5-14.5) 14.7 % (11.5-14.5) Platelet Count 76 x10^3/uL (140-400) 74 x10^3/uL (140-400) Neutrophils (%) (Auto) 68 % (31-73) 62 % (31-73) Lymphocytes (%) (Auto) 11 % (24-48) 19 % (24-48) Monocytes (%) (Auto) 20 % (0-9) 18 % (0-9) Eosinophils (%) (Auto) 0 % (0-3) 1 % (0-3) Basophils (%) (Auto) 1 % (0-3) 1 % (0-3) Neutrophils # (Auto) 5.5 x10^3/uL (1.8-7.7) 3.5 x10^3/uL (1.8-7.7) Lymphocytes # (Auto) 0.9 x10^3/uL (1.0-4.8) 1.1 x10^3/uL (1.0-4.8) Monocytes # (Auto) 1.6 x10^3/uL (0.0-1.1) 1.0 x10^3/uL (0.0-1.1) Eosinophils # (Auto) 0.0 x10^3/uL (0.0-0.7) 0.0 x10^3/uL (0.0-0.7) Basophils # (Auto) 0.0 x10^3/uL (0.0-0.2) 0.0 x10^3/uL (0.0-0.2) Segmented Neutrophils % 65 % (35-66) Band Neutrophils % 13 % (0-9) Lymphocytes % 9 % (24-48) Atypical Lymphocytes % (Manual) 1 % (0-0) Monocytes % 12 % (0-10) Toxic Vacuolation Slight Platelet Estimate Decreased (ADEQUATE) Prothrombin Time 14.3 SEC (11.7-14.0) Prothromb Time International Ratio 1.1 (0.8-1.1) Activated Partial Thromboplast Time 32 SEC (24-38) Sodium Level 131 mmol/L (136-145) 136 mmol/L (136-145) Potassium Level 2.7 mmol/L (3.5-5.1) 3.3 mmol/L (3.5-5.1) Chloride Level 92 mmol/L (98-107) 100 mmol/L (98-107) Carbon Dioxide Level 27 mmol/L (21-32) 30 mmol/L (21-32) Anion Gap 12 (6-14) 6 (6-14) Blood Urea Nitrogen 6 mg/dL (8-26) 4 mg/dL (8-26) Creatinine 0.6 mg/dL (0.7-1.3) 0.7 mg/dL (0.7-1.3) Estimated GFR (Cockcroft-Gault) 154.2 129.1 BUN/Creatinine Ratio 10 (6-20) Glucose Level 102 mg/dL (70-99) 78 mg/dL (70-99) Calcium Level 9.9 mg/dL (8.5-10.1) 8.7 mg/dL (8.5-10.1) Total Bilirubin 11.3 mg/dL (0.2-1.0) Aspartate Amino Transf (AST/SGOT) 326 U/L (15-37) Alanine Aminotransferase (ALT/SGPT) 141 U/L (16-63) Alkaline Phosphatase 304 U/L (46-116) Total Protein 7.6 g/dL (6.4-8.2) Albumin 2.7 g/dL (3.4-5.0) Albumin/Globulin Ratio 0.6 (1.0-1.7) Lipase 405 U/L (73-393) Salicylates Level < 0.2 mg/dL (2.8-20.0) Salicylate Last Dose Date Unk Salicylate Last Dose Time Unk Acetaminophen Level < 2.0 mcg/ml (10-30) Acetaminophen Last Dose Date Unk Acetaminophen Last Dose Time Unk Ethyl Alcohol Level < 10 mg/dL (0-10) Medications Current Medications Multivitamins 10 ml/Thiamine HCl 100 mg/Folic Acid 1 mg/Sodium Chloride 1,011.2 ml @ 1,000.088 mls/hr 1X ONCE IV Last administered on 02/23/19at 17:10; Start 02/23/19 at 17:00; Stop 02/23/19 at 18:00; Status DC Ondansetron HCl (Zofran) 4 mg 1X ONCE IVP Last administered on 02/23/19at 17:13; Start 02/23/19 at 16:45; Stop 02/23/19 at 16:46; Status DC Famotidine (Pepcid Vial) 20 mg 1X ONCE IVP Last administered on 02/23/19at 17:14; Start 02/23/19 at 16:45; Stop 02/23/19 at 16:46; Status DC Potassium Chloride (Klor-Con) 40 meq 1X ONCE PO Last administered on 02/23/19at 18:11; Start 02/23/19 at 18:15; Stop 02/23/19 at 18:17; Status DC Iohexol (Omnipaque 300 Mg/ml) 75 ml 1X ONCE IV Last administered on 02/23/19at 17:51; Start 02/23/19 at 17:45; Stop 02/23/19 at 17:46; Status DC Info (CONTRAST GIVEN -- Rx MONITORING) 1 each PRN DAILY PRN MC SEE COMMENTS; Start 02/23/19 at 17:45; Stop 02/25/19 at 17:44 Ondansetron HCl (Zofran) 4 mg PRN Q8HRS PRN IV NAUSEA/VOMITING; Start 02/23/19 at 18:00; Stop 02/24/19 at 17:59 Morphine Sulfate (Morphine Sulfate) 4 mg PRN Q2HR PRN IV PAIN; Start 02/23/19 at 18:00; Stop 02/24/19 at 17:59 Potassium Chloride/Dextrose/ Sod Cl 1,000 ml @ 75 mls/hr 1X ONCE IV Last administered on 02/23/19at 19:00; Start 02/23/19 at 18:00; Stop 02/24/19 at 07:19; Status DC Lorazepam (Ativan Inj) 2 mg PRN Q15MIN PRN IV SEE COMMENTS; Start 02/23/19 at 18:00 Multivitamins 10 ml/Thiamine HCl 100 mg/Folic Acid 1 mg/Sodium Chloride 1,011.2 ml @ 100 mls/ hr DAILY IV ; Start 02/24/19 at 09:00; Stop 02/25/19 at 19:07 Multivitamins (Thera M Plus) 1 tab DAILY PO ; Start 02/26/19 at 09:00 Folic Acid (Folic Acid) 1 mg DAILY PO ; Start 02/26/19 at 09:00 Thiamine Mononitrate (Vitamin B-1) 100 mg DAILY PO ; Start 02/26/19 at 09:00 Lorazepam (Ativan) 4 mg PRN Q1HR PRN PO For CIWA 8-14; Start 02/23/19 at 18:15 Lorazepam (Ativan) 8 mg PRN Q1HR PRN PO For CIWA 15 or greater; Start 02/23/19 at 18:15 Lorazepam (Ativan Inj) 2 mg PRN Q1HR PRN IV For CIWA 8-14; Start 02/23/19 at 18:15 Lorazepam (Ativan Inj) 4 mg PRN Q1HR PRN IV For CIWA 15 or greater; Start 02/23/19 at 18:15 Clonidine HCl (Catapres) 0.1 mg PRN Q1HR PRN PO SBP > 180 or DBP > 100, MRX3; Start 02/23/19 at 18:15 Sodium Chloride (Normal Saline Flush) 3 ml QSHIFT PRN IV AFTER MEDS AND BLOOD DRAWS; Start 02/23/19 at 18:15 Ondansetron HCl (Zofran) 4 mg PRN Q4HRS PRN IV NAUSEA/VOMITING; Start 02/23/19 at 18:15 Acetaminophen (Tylenol) 650 mg PRN Q4HRS PRN PO TEMP OVER 100.4F OR MILD PAIN; Start 02/23/19 at 18:15 Clonidine HCl (Catapres) 0.1 mg PRN Q6HRS PRN PO SBP>160 OR DBP>90; Start 02/23/19 at 18:15 Docusate Sodium (Colace) 100 mg PRN BID PRN PO CONSTIPATION; Start 02/23/19 at 18:15 Albuterol Sulfate (Ventolin Neb Soln) 2.5 mg PRN Q4HRS PRN NEB SHORTNESS OF BREATH; Start 02/23/19 at 18:15 Guaifenesin (Robitussin) 200 mg PRN Q4HRS PRN PO COUGH; Start 02/23/19 at 18:15 Lorazepam (Ativan) 0.5 mg PRN Q4HRS PRN PO ANXIETY / AGITATION; Start 02/23/19 at 18:15 Lorazepam (Ativan Inj) 2 mg PRN Q4HRS PRN IV ANXIETY / AGITATION; Start 02/23/19 at 18:15 Enoxaparin Sodium (Lovenox 40mg Syringe) 40 mg DAILY SQ ; Start 02/24/19 at 09:00 Pantoprazole Sodium (Protonix) 40 mg DAILY08 PO Last administered on 02/24/19at 02:50; Start 02/23/19 at 19:45 Potassium Chloride (Klor-Con) 40 meq 1X ONCE PO ; Start 02/23/19 at 19:45; Stop 02/23/19 at 19:46; Status DC Vitals/I & O Vital Sign - Last 24 Hours 02/23/19 02/23/19 02/23/19 02/23/19 16:25 17:30 18:30 19:30 Temp 99.2 99.2 Pulse 127 104 110 110 Resp 18 16 B/P (MAP) 130/81 (97) 131/84 (100) 141/92 (108) 135/83 (100) Pulse Ox 94 96 95 96 O2 Delivery Room Air Room Air Room Air Room Air 02/23/19 02/23/19 02/23/19 02/24/19 20:10 21:23 23:20 03:28 Temp 99.1 98.5 98.3 99.1 98.5 98.3 Pulse 111 87 91 Resp 20 20 20 B/P (MAP) 125/79 (94) 115/79 (91) 117/78 (91) Pulse Ox 94 96 94 97 O2 Delivery Room Air Room Air Room Air Room Air 02/24/19 07:55 Temp 98.6 98.6 Pulse 90 Resp 20 B/P (MAP) 108/80 (89) Pulse Ox 97 O2 Delivery Room Air Intake and Output 02/23/19 02/23/19 02/24/19 14:59 22:59 06:59 Intake Total 1000 ml 0 ml Balance 1000 ml 0 ml MUNA KATHLEEN MD Feb 24, 2019 08:36
[2019-02-24] MEDS ORDERED: POTASSIUM CHLORIDE 20 MEQ TABLET.ER. PO ONE (09:00)
[2019-02-24] MEDS: MULTIVIT INFUSN,ADULT 4,VIT K 10 ML, THIAMINE INJ 100 MG, FOLIC ACID INJ 1 MG in IV NOR... IV SCH (09:00)
[2019-02-24 09:20] LABS: ALBUMIN 2.4 g/dL (3.4-5.0); DIRECT BILIRUBIN 7.8 mg/dL (0.0-0.2); TOTAL BILIRUBIN 9.8 mg/dL (0.2-1.0)
[2019-02-24] MEDS: ENOXAPARIN 40 MG/0.4 ML SYRINGE. SQ SCH (09:33)
--- NOTE | 2019-02-24 09:41 | PDOC2 ---
GI CONSULT Reason For Consult: Alcohol associated cirrhosis/abuse HPI: HPI: 33 y/o male who typically drinks a fifth of whiskey daily. Began not feeling well last weekend - "just felt sickly" on Thursday, then later on noticed his eyes looked yellow. Also reports some "muscle-wasting" and was concerned he had a liver problem so he came to the ER. Did a detox program in 2018 - was sober for a month or so. Has had shaking from withdrawal in the past, denies seizures. Says he was told in the ER here another time he had elevated liver labs. Occasional heartburn. No dysphagia, n/v, abdominal pain, diarrhea, constipation, hematochezia, melena. Maybe decreased appetite "but I thought I was just hungover." No previous EGD or colonoscopy. No GB, pancreas, or PUD history. No NSAIDs. Currently unemployed. PMH: PMH: anxiety, panic attacks, alcoholism FH: Family History: Cancer (lung) Social History: Smoke: <1 pack per day ALCOHOL: heavy Drugs: None ROS: GEN: Denies fevers, chills, sweats HEENT: Denies blurred vision, sore throat CV: Denies chest pain RESP: Denies shortness of air, cough GI: Per HPI : Denies hematuria, dysuria ENDO: Denies weight changes NEURO: Denies confusion, dizziness MSK: Denies weakness, joint pain/swelling SKIN: Denies jaundice, pruritus Vitals: Vitals: Vital Signs Date Time Temp Pulse Resp B/P (MAP) Pulse Ox O2 Delivery O2 Flow Rate FiO2 02/24/19 07:55 98.6 90 20 108/80 (89) 97 Room Air 98.6 Labs: Labs: Laboratory Tests Test 02/23/19 16:30 02/23/19 17:00 02/24/19 06:05 Urine Collection Type Unknown Urine Color [place] Urine Clarity Clear Urine pH 7.5 Urine Specific [place] 1.015 Urine Protein Negative mg/dL (NEG-TRACE) Urine Glucose (UA) Negative mg/dL (NEG) Urine Ketones (Stick) Trace mg/dL (NEG) Urine Blood Negative (NEG) Urine Nitrite Negative (NEG) Urine Bilirubin Large (NEG) Urine Urobilinogen Dipstick 1.0 mg/dL (0.2 mg/dL) Urine Leukocyte Esterase Small (NEG) Urine RBC 0 /HPF (0-2) Urine WBC Occ /HPF (0-4) Urine Squamous Epithelial Cells Many /LPF Urine Bacteria Mod /HPF (0-FEW) Urine Mucus Marked /LPF Urine Opiates Screen Neg (NEG) Urine Methadone Screen Neg (NEG) Urine Barbiturates Neg (NEG) Urine Phencyclidine Screen Neg (NEG) Urine Amphetamine/Methamphetamine Neg (NEG) Urine Benzodiazepines Screen Neg (NEG) Urine Cocaine Screen Neg (NEG) Urine Cannabinoids Screen Neg (NEG) Urine Ethyl Alcohol Neg (NEG) White Blood Count 8.1 x10^3/uL (4.0-11.0) 5.7 x10^3/uL (4.0-11.0) Red Blood Count 3.76 x10^6/uL (4.30-5.70) 3.56 x10^6/uL (4.30-5.70) Hemoglobin 13.0 g/dL (13.0-17.5) 12.3 g/dL (13.0-17.5) Hematocrit 37.4 % (39.0-53.0) 35.8 % (39.0-53.0) Mean Corpuscular Volume 100 fL (79-100) 100 fL (79-100) Mean Corpuscular Hemoglobin 35 pg (25-35) 35 pg (25-35) Mean Corpuscular Hemoglobin Concent 35 g/dL (31-37) 34 g/dL (31-37) Red Cell Distribution Width 14.8 % (11.5-14.5) 14.7 % (11.5-14.5) Platelet Count 76 x10^3/uL (140-400) 74 x10^3/uL (140-400) Neutrophils (%) (Auto) 68 % (31-73) 62 % (31-73) Lymphocytes (%) (Auto) 11 % (24-48) 19 % (24-48) Monocytes (%) (Auto) 20 % (0-9) 18 % (0-9) Eosinophils (%) (Auto) 0 % (0-3) 1 % (0-3) Basophils (%) (Auto) 1 % (0-3) 1 % (0-3) Neutrophils # (Auto) 5.5 x10^3/uL (1.8-7.7) 3.5 x10^3/uL (1.8-7.7) Lymphocytes # (Auto) 0.9 x10^3/uL (1.0-4.8) 1.1 x10^3/uL (1.0-4.8) Monocytes # (Auto) 1.6 x10^3/uL (0.0-1.1) 1.0 x10^3/uL (0.0-1.1) Eosinophils # (Auto) 0.0 x10^3/uL (0.0-0.7) 0.0 x10^3/uL (0.0-0.7) Basophils # (Auto) 0.0 x10^3/uL (0.0-0.2) 0.0 x10^3/uL (0.0-0.2) Segmented Neutrophils % 65 % (35-66) Band Neutrophils % 13 % (0-9) Lymphocytes % 9 % (24-48) Atypical Lymphocytes % (Manual) 1 % (0-0) Monocytes % 12 % (0-10) Toxic Vacuolation Slight Platelet Estimate Decreased (ADEQUATE) Prothrombin Time 14.3 SEC (11.7-14.0) Prothromb Time International Ratio 1.1 (0.8-1.1) Activated Partial Thromboplast Time 32 SEC (24-38) Sodium Level 131 mmol/L (136-145) 136 mmol/L (136-145) Potassium Level 2.7 mmol/L (3.5-5.1) 3.3 mmol/L (3.5-5.1) Chloride Level 92 mmol/L (98-107) 100 mmol/L (98-107) Carbon Dioxide Level 27 mmol/L (21-32) 30 mmol/L (21-32) Anion Gap 12 (6-14) 6 (6-14) Blood Urea Nitrogen 6 mg/dL (8-26) 4 mg/dL (8-26) Creatinine 0.6 mg/dL (0.7-1.3) 0.7 mg/dL (0.7-1.3) Estimated GFR (Cockcroft-Gault) 154.2 129.1 BUN/Creatinine Ratio 10 (6-20) Glucose Level 102 mg/dL (70-99) 78 mg/dL (70-99) Calcium Level 9.9 mg/dL (8.5-10.1) 8.7 mg/dL (8.5-10.1) Total Bilirubin 11.3 mg/dL (0.2-1.0) 9.8 mg/dL (0.2-1.0) Aspartate Amino Transf (AST/SGOT) 326 U/L (15-37) 243 U/L (15-37) Alanine Aminotransferase (ALT/SGPT) 141 U/L (16-63) 112 U/L (16-63) Alkaline Phosphatase 304 U/L (46-116) 260 U/L (46-116) Total Protein 7.6 g/dL (6.4-8.2) 7.0 g/dL (6.4-8.2) Albumin 2.7 g/dL (3.4-5.0) 2.4 g/dL (3.4-5.0) Albumin/Globulin Ratio 0.6 (1.0-1.7) Lipase 405 U/L (73-393) Salicylates Level < 0.2 mg/dL (2.8-20.0) Salicylate Last Dose Date Unk Salicylate Last Dose Time Unk Acetaminophen Level < 2.0 mcg/ml (10-30) Acetaminophen Last Dose Date Unk Acetaminophen Last Dose Time Unk Ethyl Alcohol Level < 10 mg/dL (0-10) Direct Bilirubin 7.8 mg/dL (0.0-0.2) Allergies: Coded Allergies: No Known Drug Allergies (Unverified , 11/13/18) Medications: Current Medications Medications (Trade) Dose Ordered Sig/Toan Route PRN Reason Start Time Stop Time Status Last Admin Dose Admin Multivitamins 10 ml/Thiamine HCl 100 mg/Folic Acid 1 mg/Sodium Chloride 1,011.2 ml @ 1,000.088 mls/hr 1X ONCE IV 02/23/19 17:00 02/23/19 18:00 DC 02/23/19 17:10 Ondansetron HCl (Zofran) 4 mg 1X ONCE IVP 02/23/19 16:45 02/23/19 16:46 DC 02/23/19 17:13 Famotidine (Pepcid Vial) 20 mg 1X ONCE IVP 02/23/19 16:45 02/23/19 16:46 DC 02/23/19 17:14 Potassium Chloride (Klor-Con) 40 meq 1X ONCE PO 02/23/19 18:15 02/23/19 18:17 DC 02/23/19 18:11 Iohexol (Omnipaque 300 Mg/ml) 75 ml 1X ONCE IV 02/23/19 17:45 02/23/19 17:46 DC 02/23/19 17:51 Potassium Chloride/Dextrose/ Sod Cl 1,000 ml @ 75 mls/hr 1X ONCE IV 02/23/19 18:00 02/24/19 07:19 DC 02/23/19 19:00 Enoxaparin Sodium (Lovenox 40mg Syringe) 40 mg DAILY SQ 02/24/19 09:00 02/24/19 09:33 Pantoprazole Sodium (Protonix) 40 mg DAILY08 PO 02/23/19 19:45 02/24/19 09:38 Potassium Chloride (Klor-Con) 40 meq 1X ONCE PO 02/24/19 09:00 02/24/19 09:05 DC 02/24/19 09:38 Imaging: Imaging: CT A/P w/ IV contrast IMPRESSION: 1. Wall thickening of the left-sided colon from the splenic flexure to the rectum and mild hypervascular enhancement of the rectum raising suspicion of low-grade colitis. 2. Appendix is negative. 3. The pancreas is unremarkable. 4. Hepatomegaly and probable liver steatosis. US pending PE: GEN: NAD HEENT: Atraumatic, PERRL LUNGS: CTAB HEART: RRR ABD: NABS, S/ND/NT EXTREMITY: No edema SKIN: +jaundice NEURO/PSYCH: A & O 3 A/P: A/P: Alcohol abuse/alcoholic hepatitis, hepatomegaly/hepatic steatosis (on CT) Thrombocytopenia, hyponatremia, hypokalemia, hypoalbuminemia Fatigue, weight loss Occasional heartburn - on PPI here CRC screen - average risk Abnormal CT - possible "low grade colitis" - pt denies diarrhea, bleeding, pain -- Await Hepatitis panel. Okay to eat per GI. Unclear significance of very mildly elevated lipase w/ normal pancreas on CT and no symptoms of pancreatitis. MAME MARTE Feb 24, 2019 09:41
--- NOTE | 2019-02-24 10:33 | RAD ---
Examination: ABDOMEN COMPLETE History: Cirrhosis Comparison/Correlation: None Findings: Complete upper abdominal ultrasound examination was performed. Fatty infiltration of the liver is evident. Liver length is 21.6 cm. Common bile duct measures 0.3 cm diameter. No biliary dilatation. Sludge is present within the gallbladder. Wall thickness is 0.7 cm. Minimal pericholecystic fluid is noted. Portal venous flow is normal. Proximal pancreas is normal. Distal pancreas is obscured by bowel gas. Spleen measures 12.6 longitudinal and has a normal appearance. Right kidney measures 11.6 cm x 6 x 5.4 cm. The left kidney measures 12.5 cm x 5.8 cm x 4.5 cm. No hydronephrosis. Abdominal aortic and inferior vena cava diameter are unremarkable. No definite upper abdominal ascites identified. Impression: Sludge within the gallbladder. Minimal pericholecystic fluid and wall thickening. Correlate for possibility of underlying cholecystitis. Fatty infiltration of the liver. Hepatomegaly. Subtle nodular contour of the liver which raises question of cirrhosis. Electronically signed by: Shaquille Chapman MD (02/24/2019 10:30 AM) [facility]
[2019-02-24 11:00] VITALS: BP 119/80
[2019-02-24 15:00] VITALS: BP 112/81
--- NOTE | 2019-02-24 16:32 | NUR ---
SW consult acknowledged. Discussed with pt at bedside today. Will put detail notes in EMR tomorrow. Discussed with RN.
[2019-02-24 19:05] VITALS: BP 125/80
[2019-02-24 23:05] VITALS: BP 115/78
[2019-02-25 03:05] VITALS: BP 106/72
[2019-02-25 05:31] LABS: BASO % 1 % (0-3); EOS % 1 % (0-3); HEMATOCRIT 34.5 % (39.0-53.0); HEMOGLOBIN 11.8 g/dL (13.0-17.5); LYMPH # 1.6 x10^3/uL (1.0-4.8); LYMPH % 24 % (24-48); MEAN CORPUSCULAR HEMOGLOBIN 35 pg (25-35); MEAN CORPUSCULAR HGB CONC 34 g/dL (31-37); MEAN CORPUSCULAR VOLUME 101 fL (79-100); MONO # 1.3 x10^3/uL (0.0-1.1); MONO % 19 % (0-9); NEUT # 3.7 x10^3/uL (1.8-7.7); NEUT % 55 % (31-73); PLATELET COUNT 93 x10^3/uL (140-400); RED CELL DISTRIBUTION WIDTH 14.9 % (11.5-14.5); WHITE BLOOD COUNT 6.7 x10^3/uL (4.0-11.0)
[2019-02-25 06:16] LABS: ALBUMIN 2.3 g/dL (3.4-5.0); ALBUMIN/GLOBULIN RATIO 0.5 (1.0-1.7); CALCIUM 8.9 mg/dL (8.5-10.1); CREATININE 0.7 mg/dL (0.7-1.3); GFR 129.1; POTASSIUM 3.6 mmol/L (3.5-5.1); TOTAL PROTEIN 6.6 g/dL (6.4-8.2)
[2019-02-25 07:35] VITALS: BP 122/78
--- NOTE | 2019-02-25 07:51 | PDOC ---
PROGRESS NOTES History of Present Illness History of Present Illness VTE Prophylaxis Ordered VTE Prophylaxis Devices: Yes VTE Pharmacological Prophylaxi: Yes discharge dx 1. severe alcohol abuse 2. severe hypokalemia 3. 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 Wall thickening of the left-sided colon from the splenic flexure to the rectum and mild hypervascular enhancement of the rectum raising suspicion of low-grade colitis. 5. ELEVATED LIPASE 6. Hepatomegaly and probable HEPATIC steatosis 7. Depression// anxiety 8. SEVERE protein-caloric malnutrition 9. THROMBOCYTOPENIA sec splenomegaly likely// etoh 10.Sludge within the gallbladder. Minimal pericholecystic fluid and wall thickening. Correlate for possibility of underlying cholecystitis. ok for d/c by gi plan admit ct abd/ pelvis REVIEWED banana bag, iv fluid support alcohol withdrawal precautions dvt prophylaxis gi prophylaxis REPLACE K GI following abd sono acute hepatitis dx panel stool culture GGTP 33 MIN PT EXAM, CHART REVIEW d/c planning , > 50% OF TIME SPENT WITH EXAM, CHART REVIEW, PT CARE COORDINATION Vitals Vitals Vital Signs Date Time Temp Pulse Resp B/P (MAP) Pulse Ox O2 Delivery O2 Flow Rate FiO2 02/25/19 07:35 98.9 78 18 122/78 (93) 94 Room Air 98.9 Physical Exam General: Alert, Oriented X3, Cooperative, No acute distress Heart: Regular rate, Normal S1, Normal S2 Lungs: Clear Abdomen: Normal bowel sounds, Soft, No tenderness Extremities: No clubbing, No cyanosis, No edema Skin: No breakdown Labs LABS PATIENT: NIKA BROWN ACCT: [id number] LOC: [address] [place] [address] U: [id number] AGE/SX: 33/M ROOM: [facility] RE02/23/[address]: MUNA KATHLEEN MD : 1985 BED: 1 DIS: STATUS: ADM IN TLOC: SPEC #: [id number] ANA MARIA: 02/23/19 STATUS: RES REQ #: [id number] RECD: 02/23/[address]: MUNA KATHLEEN MD SOURCE: BLOOD ENTR: 02/23/[address]: ANTONY MONTAÑO [facility]N [facility] JORGE LUIS ROSA MD, MICHAEL F MD ORDERED: BCULT Procedure Result BLOOD CULTURE Preliminary NO GROWTH AFTER 1 DAY Laboratory Tests Test 02/25/19 04:02 White Blood Count 6.7 x10^3/uL (4.0-11.0) Red Blood Count 3.40 x10^6/uL (4.30-5.70) Hemoglobin 11.8 g/dL (13.0-17.5) Hematocrit 34.5 % (39.0-53.0) Mean Corpuscular Volume 101 fL (79-100) Mean Corpuscular Hemoglobin 35 pg (25-35) Mean Corpuscular Hemoglobin Concent 34 g/dL (31-37) Red Cell Distribution Width 14.9 % (11.5-14.5) Platelet Count 93 x10^3/uL (140-400) Neutrophils (%) (Auto) 55 % (31-73) Lymphocytes (%) (Auto) 24 % (24-48) Monocytes (%) (Auto) 19 % (0-9) Eosinophils (%) (Auto) 1 % (0-3) Basophils (%) (Auto) 1 % (0-3) Neutrophils # (Auto) 3.7 x10^3/uL (1.8-7.7) Lymphocytes # (Auto) 1.6 x10^3/uL (1.0-4.8) Monocytes # (Auto) 1.3 x10^3/uL (0.0-1.1) Eosinophils # (Auto) 0.0 x10^3/uL (0.0-0.7) Basophils # (Auto) 0.0 x10^3/uL (0.0-0.2) Sodium Level 134 mmol/L (136-145) Potassium Level 3.6 mmol/L (3.5-5.1) Chloride Level 99 mmol/L (98-107) Carbon Dioxide Level 28 mmol/L (21-32) Anion Gap 7 (6-14) Blood Urea Nitrogen 3 mg/dL (8-26) Creatinine 0.7 mg/dL (0.7-1.3) Estimated GFR (Cockcroft-Gault) 129.1 BUN/Creatinine Ratio 4 (6-20) Glucose Level 88 mg/dL (70-99) Calcium Level 8.9 mg/dL (8.5-10.1) Total Bilirubin 9.0 mg/dL (0.2-1.0) Aspartate Amino Transf (AST/SGOT) 196 U/L (15-37) Alanine Aminotransferase (ALT/SGPT) 98 U/L (16-63) Alkaline Phosphatase 257 U/L (46-116) Total Protein 6.6 g/dL (6.4-8.2) Albumin 2.3 g/dL (3.4-5.0) Albumin/Globulin Ratio 0.5 (1.0-1.7) Assessment and Plan Assessmemt and Plan Problems Medical Problems: (1) Alcohol intoxication Status: Acute (2) Hypokalemia Status: Acute (3) Jaundice Status: Acute (4) Transaminitis Status: Acute Comment Review of Relevant I have reviewed the following items robel (where applicable) has been applied. Labs Laboratory Tests Test 02/23/19 16:30 02/23/19 17:00 02/24/19 06:05 02/25/19 04:02 Urine Collection Type Unknown Urine Color [place] Urine Clarity Clear Urine pH 7.5 Urine Specific [place] 1.015 Urine Protein Negative mg/dL (NEG-TRACE) Urine Glucose (UA) Negative mg/dL (NEG) Urine Ketones (Stick) Trace mg/dL (NEG) Urine Blood Negative (NEG) Urine Nitrite Negative (NEG) Urine Bilirubin Large (NEG) Urine Urobilinogen Dipstick 1.0 mg/dL (0.2 mg/dL) Urine Leukocyte Esterase Small (NEG) Urine RBC 0 /HPF (0-2) Urine WBC Occ /HPF (0-4) Urine Squamous Epithelial Cells Many /LPF Urine Bacteria Mod /HPF (0-FEW) Urine Mucus Marked /LPF Urine Opiates Screen Neg (NEG) Urine Methadone Screen Neg (NEG) Urine Barbiturates Neg (NEG) Urine Phencyclidine Screen Neg (NEG) Urine Amphetamine/Methamphetamine Neg (NEG) Urine Benzodiazepines Screen Neg (NEG) Urine Cocaine Screen Neg (NEG) Urine Cannabinoids Screen Neg (NEG) Urine Ethyl Alcohol Neg (NEG) White Blood Count 8.1 x10^3/uL (4.0-11.0) 5.7 x10^3/uL (4.0-11.0) 6.7 x10^3/uL (4.0-11.0) Red Blood Count 3.76 x10^6/uL (4.30-5.70) 3.56 x10^6/uL (4.30-5.70) 3.40 x10^6/uL (4.30-5.70) Hemoglobin 13.0 g/dL (13.0-17.5) 12.3 g/dL (13.0-17.5) 11.8 g/dL (13.0-17.5) Hematocrit 37.4 % (39.0-53.0) 35.8 % (39.0-53.0) 34.5 % (39.0-53.0) Mean Corpuscular Volume 100 fL (79-100) 100 fL (79-100) 101 fL (79-100) Mean Corpuscular Hemoglobin 35 pg (25-35) 35 pg (25-35) 35 pg (25-35) Mean Corpuscular Hemoglobin Concent 35 g/dL (31-37) 34 g/dL (31-37) 34 g/dL (31-37) Red Cell Distribution Width 14.8 % (11.5-14.5) 14.7 % (11.5-14.5) 14.9 % (11.5-14.5) Platelet Count 76 x10^3/uL (140-400) 74 x10^3/uL (140-400) 93 x10^3/uL (140-400) Neutrophils (%) (Auto) 68 % (31-73) 62 % (31-73) 55 % (31-73) Lymphocytes (%) (Auto) 11 % (24-48) 19 % (24-48) 24 % (24-48) Monocytes (%) (Auto) 20 % (0-9) 18 % (0-9) 19 % (0-9) Eosinophils (%) (Auto) 0 % (0-3) 1 % (0-3) 1 % (0-3) Basophils (%) (Auto) 1 % (0-3) 1 % (0-3) 1 % (0-3) Neutrophils # (Auto) 5.5 x10^3/uL (1.8-7.7) 3.5 x10^3/uL (1.8-7.7) 3.7 x10^3/uL (1.8-7.7) Lymphocytes # (Auto) 0.9 x10^3/uL (1.0-4.8) 1.1 x10^3/uL (1.0-4.8) 1.6 x10^3/uL (1.0-4.8) Monocytes # (Auto) 1.6 x10^3/uL (0.0-1.1) 1.0 x10^3/uL (0.0-1.1) 1.3 x10^3/uL (0.0-1.1) Eosinophils # (Auto) 0.0 x10^3/uL (0.0-0.7) 0.0 x10^3/uL (0.0-0.7) 0.0 x10^3/uL (0.0-0.7) Basophils # (Auto) 0.0 x10^3/uL (0.0-0.2) 0.0 x10^3/uL (0.0-0.2) 0.0 x10^3/uL (0.0-0.2) Segmented Neutrophils % 65 % (35-66) Band Neutrophils % 13 % (0-9) Lymphocytes % 9 % (24-48) Atypical Lymphocytes % (Manual) 1 % (0-0) Monocytes % 12 % (0-10) Toxic Vacuolation Slight Platelet Estimate Decreased (ADEQUATE) Prothrombin Time 14.3 SEC (11.7-14.0) Prothromb Time International Ratio 1.1 (0.8-1.1) Activated Partial Thromboplast Time 32 SEC (24-38) Sodium Level 131 mmol/L (136-145) 136 mmol/L (136-145) 134 mmol/L (136-145) Potassium Level 2.7 mmol/L (3.5-5.1) 3.3 mmol/L (3.5-5.1) 3.6 mmol/L (3.5-5.1) Chloride Level 92 mmol/L (98-107) 100 mmol/L (98-107) 99 mmol/L (98-107) Carbon Dioxide Level 27 mmol/L (21-32) 30 mmol/L (21-32) 28 mmol/L (21-32) Anion Gap 12 (6-14) 6 (6-14) 7 (6-14) Blood Urea Nitrogen 6 mg/dL (8-26) 4 mg/dL (8-26) 3 mg/dL (8-26) Creatinine 0.6 mg/dL (0.7-1.3) 0.7 mg/dL (0.7-1.3) 0.7 mg/dL (0.7-1.3) Estimated GFR (Cockcroft-Gault) 154.2 129.1 129.1 BUN/Creatinine Ratio 10 (6-20) 4 (6-20) Glucose Level 102 mg/dL (70-99) 78 mg/dL (70-99) 88 mg/dL (70-99) Calcium Level 9.9 mg/dL (8.5-10.1) 8.7 mg/dL (8.5-10.1) 8.9 mg/dL (8.5-10.1) Total Bilirubin 11.3 mg/dL (0.2-1.0) 9.8 mg/dL (0.2-1.0) 9.0 mg/dL (0.2-1.0) Aspartate Amino Transf (AST/SGOT) 326 U/L (15-37) 243 U/L (15-37) 196 U/L (15-37) Alanine Aminotransferase (ALT/SGPT) 141 U/L (16-63) 112 U/L (16-63) 98 U/L (16-63) Alkaline Phosphatase 304 U/L (46-116) 260 U/L (46-116) 257 U/L (46-116) Total Protein 7.6 g/dL (6.4-8.2) 7.0 g/dL (6.4-8.2) 6.6 g/dL (6.4-8.2) Albumin 2.7 g/dL (3.4-5.0) 2.4 g/dL (3.4-5.0) 2.3 g/dL (3.4-5.0) Albumin/Globulin Ratio 0.6 (1.0-1.7) 0.5 (1.0-1.7) Lipase 405 U/L (73-393) Salicylates Level < 0.2 mg/dL (2.8-20.0) Salicylate Last Dose Date Unk Salicylate Last Dose Time Unk Acetaminophen Level < 2.0 mcg/ml (10-30) Acetaminophen Last Dose Date Unk Acetaminophen Last Dose Time Unk Ethyl Alcohol Level < 10 mg/dL (0-10) Direct Bilirubin 7.8 mg/dL (0.0-0.2) Hepatitis A IgM Antibody Nonreactive (Nonreactive) Hepatitis B Surface Antigen Nonreactive (Nonreactive) Hepatitis B Core IgM Antibody Nonreactive (Nonreactive) Hepatitis C IgG Antibody Nonreactive (Nonreactive) Laboratory Tests Test 02/25/19 04:02 White Blood Count 6.7 x10^3/uL (4.0-11.0) Red Blood Count 3.40 x10^6/uL (4.30-5.70) Hemoglobin 11.8 g/dL (13.0-17.5) Hematocrit 34.5 % (39.0-53.0) Mean Corpuscular Volume 101 fL (79-100) Mean Corpuscular Hemoglobin 35 pg (25-35) Mean Corpuscular Hemoglobin Concent 34 g/dL (31-37) Red Cell Distribution Width 14.9 % (11.5-14.5) Platelet Count 93 x10^3/uL (140-400) Neutrophils (%) (Auto) 55 % (31-73) Lymphocytes (%) (Auto) 24 % (24-48) Monocytes (%) (Auto) 19 % (0-9) Eosinophils (%) (Auto) 1 % (0-3) Basophils (%) (Auto) 1 % (0-3) Neutrophils # (Auto) 3.7 x10^3/uL (1.8-7.7) Lymphocytes # (Auto) 1.6 x10^3/uL (1.0-4.8) Monocytes # (Auto) 1.3 x10^3/uL (0.0-1.1) Eosinophils # (Auto) 0.0 x10^3/uL (0.0-0.7) Basophils # (Auto) 0.0 x10^3/uL (0.0-0.2) Sodium Level 134 mmol/L (136-145) Potassium Level 3.6 mmol/L (3.5-5.1) Chloride Level 99 mmol/L (98-107) Carbon Dioxide Level 28 mmol/L (21-32) Anion Gap 7 (6-14) Blood Urea Nitrogen 3 mg/dL (8-26) Creatinine 0.7 mg/dL (0.7-1.3) Estimated GFR (Cockcroft-Gault) 129.1 BUN/Creatinine Ratio 4 (6-20) Glucose Level 88 mg/dL (70-99) Calcium Level 8.9 mg/dL (8.5-10.1) Total Bilirubin 9.0 mg/dL (0.2-1.0) Aspartate Amino Transf (AST/SGOT) 196 U/L (15-37) Alanine Aminotransferase (ALT/SGPT) 98 U/L (16-63) Alkaline Phosphatase 257 U/L (46-116) Total Protein 6.6 g/dL (6.4-8.2) Albumin 2.3 g/dL (3.4-5.0) Albumin/Globulin Ratio 0.5 (1.0-1.7) Microbiology 02/23/19 Blood Culture - Preliminary, Resulted NO GROWTH AFTER 1 DAY Medications Current Medications Multivitamins 10 ml/Thiamine HCl 100 mg/Folic Acid 1 mg/Sodium Chloride 1,011.2 ml @ 1,000.088 mls/hr 1X ONCE IV Last administered on 02/23/19at 17:10; Start 02/23/19 at 17:00; Stop 02/23/19 at 18:00; Status DC Ondansetron HCl (Zofran) 4 mg 1X ONCE IVP Last administered on 02/23/19at 17:13; Start 02/23/19 at 16:45; Stop 02/23/19 at 16:46; Status DC Famotidine (Pepcid Vial) 20 mg 1X ONCE IVP Last administered on 02/23/19at 17:14; Start 02/23/19 at 16:45; Stop 02/23/19 at 16:46; Status DC Potassium Chloride (Klor-Con) 40 meq 1X ONCE PO Last administered on 02/23/19at 18:11; Start 02/23/19 at 18:15; Stop 02/23/19 at 18:17; Status DC Iohexol (Omnipaque 300 Mg/ml) 75 ml 1X ONCE IV Last administered on 02/23/19at 17:51; Start 02/23/19 at 17:45; Stop 02/23/19 at 17:46; Status DC Info (CONTRAST GIVEN -- Rx MONITORING) 1 each PRN DAILY PRN MC SEE COMMENTS; Start 02/23/19 at 17:45; Stop 02/25/19 at 17:44 Ondansetron HCl (Zofran) 4 mg PRN Q8HRS PRN IV NAUSEA/VOMITING; Start 02/23/19 at 18:00; Stop 02/24/19 at 17:59; Status DC Morphine Sulfate (Morphine Sulfate) 4 mg PRN Q2HR PRN IV PAIN; Start 02/23/19 at 18:00; Stop 02/24/19 at 17:59; Status DC Potassium Chloride/Dextrose/ Sod Cl 1,000 ml @ 75 mls/hr 1X ONCE IV Last administered on 02/23/19at 19:00; Start 02/23/19 at 18:00; Stop 02/24/19 at 07:19; Status DC Lorazepam (Ativan Inj) 2 mg PRN Q15MIN PRN IV SEE COMMENTS; Start 02/23/19 at 18:00 Multivitamins 10 ml/Thiamine HCl 100 mg/Folic Acid 1 mg/Sodium Chloride 1,011.2 ml @ 100 mls/ hr DAILY IV Last administered on 02/24/19at 09:00; Start 02/24/19 at 09:00; Stop 02/25/19 at 19:07 Multivitamins (Thera M Plus) 1 tab DAILY PO ; Start 02/26/19 at 09:00 Folic Acid (Folic Acid) 1 mg DAILY PO ; Start 02/26/19 at 09:00 Thiamine Mononitrate (Vitamin B-1) 100 mg DAILY PO ; Start 02/26/19 at 09:00 Lorazepam (Ativan) 4 mg PRN Q1HR PRN PO For CIWA 8-14; Start 02/23/19 at 18:15 Lorazepam (Ativan) 8 mg PRN Q1HR PRN PO For CIWA 15 or greater; Start 02/23/19 at 18:15 Lorazepam (Ativan Inj) 2 mg PRN Q1HR PRN IV For CIWA 8-14; Start 02/23/19 at 18:15 Lorazepam (Ativan Inj) 4 mg PRN Q1HR PRN IV For CIWA 15 or greater; Start 02/23/19 at 18:15 Clonidine HCl (Catapres) 0.1 mg PRN Q1HR PRN PO SBP > 180 or DBP > 100, MRX3; Start 02/23/19 at 18:15 Sodium Chloride (Normal Saline Flush) 3 ml QSHIFT PRN IV AFTER MEDS AND BLOOD DRAWS; Start 02/23/19 at 18:15 Ondansetron HCl (Zofran) 4 mg PRN Q4HRS PRN IV NAUSEA/VOMITING; Start 02/23/19 at 18:15 Acetaminophen (Tylenol) 650 mg PRN Q4HRS PRN PO TEMP OVER 100.4F OR MILD PAIN; Start 02/23/19 at 18:15 Clonidine HCl (Catapres) 0.1 mg PRN Q6HRS PRN PO SBP>160 OR DBP>90; Start 02/23/19 at 18:15; Stop 02/24/19 at 16:13; Status DC Docusate Sodium (Colace) 100 mg PRN BID PRN PO CONSTIPATION; Start 02/23/19 at 18:15 Albuterol Sulfate (Ventolin Neb Soln) 2.5 mg PRN Q4HRS PRN NEB SHORTNESS OF BREATH; Start 02/23/19 at 18:15 Guaifenesin (Robitussin) 200 mg PRN Q4HRS PRN PO COUGH; Start 02/23/19 at 18:1 5 Lorazepam (Ativan) 0.5 mg PRN Q4HRS PRN PO ANXIETY / AGITATION Last administered on 02/24/19at 14:24; Start 02/23/19 at 18:15 Lorazepam (Ativan Inj) 2 mg PRN Q4HRS PRN IV ANXIETY / AGITATION; Start 02/23/19 at 18:15 Enoxaparin Sodium (Lovenox 40mg Syringe) 40 mg DAILY SQ Last administered on 02/24/19at 09:33; Start 02/24/19 at 09:00 Pantoprazole Sodium (Protonix) 40 mg DAILY08 PO Last administered on 02/24/19at 09:38; Start 02/23/19 at 19:45 Potassium Chloride (Klor-Con) 40 meq 1X ONCE PO ; Start 02/23/19 at 19:45; Stop 02/23/19 at 19:46; Status DC Potassium Chloride (Klor-Con) 40 meq 1X ONCE PO Last administered on 02/24/19at 09:38; Start 02/24/19 at 09:00; Stop 02/24/19 at 09:05; Status DC Potassium Chloride (Klor-Con) 20 meq DAILYWBKFT PO ; Start 02/25/19 at 08:00 Vitals/I & O Vital Sign - Last 24 Hours 02/24/19 02/24/19 02/24/19 02/24/19 07:55 08:00 11:00 15:00 Temp 98.6 98.3 98.0 98.6 98.3 98.0 Pulse 90 91 87 Resp 20 20 24 B/P (MAP) 108/80 (89) 119/80 (93) 112/81 (91) Pulse Ox 97 94 95 O2 Delivery Room Air Room Air Room Air Room Air 02/24/19 02/24/19 02/24/19 02/25/19 19:05 20:00 23:05 03:05 Temp 97.6 98.6 99.2 97.6 98.6 99.2 Pulse 107 87 77 Resp 18 18 18 B/P (MAP) 125/80 (95) 115/78 (90) 106/72 (83) Pulse Ox 95 96 97 O2 Delivery Room Air Room Air Room Air Room Air 02/25/19 07:35 Temp 98.9 98.9 Pulse 78 Resp 18 B/P (MAP) 122/78 (93) Pulse Ox 94 O2 Delivery Room Air Intake and Output 02/24/19 02/24/19 02/25/19 15:00 23:00 07:00 Intake Total 180 ml 180 ml 400 ml Output Total 650 ml 1000 ml Balance -470 ml 180 ml -600 ml MUNA KATHLEEN MD Feb 25, 2019 07:51
[2019-02-25] MEDS ORDERED: POTASSIUM CHLORIDE 20 MEQ TABLET.ER. PO SCH (08:00)
--- NOTE | 2019-02-25 08:35 | NUR ---
Late Entry: SW consulted regarding ETOH use. Chart reviewed and discussed with RN. SW spoke with pt on 02/24/19 at bedside and pt reports he currently is moving in to live with his brother. 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 Pt states he then moved to [place] for a while and came back to the [facility], pt states he with in July 2018 and has two minor children. Pt still sees his children but they usually stay with mom. Pt states he used to take medication for anxiety and has panic attacks but now since he does not have insurance he no longer has PCP. Pt states after losing everything he had worked for he started increasing his ETOH intake. Pt states since he was working from home when he started drinking at day time and lost his job because of it. Pt states he tries to avoid facing the consequences of his actions by just drinking but acknowledged he needs to make changes. Pt has been to a detox treatment center in the past. Pt is interested in getting treatment and also start taking medication for anxiety. Pt denies SI or any hx of SI. Plan 1. DANITA provided pt with [facility] info- pt has agreed to call and make an appointment for intake for IOP services. 2. DANITA provided pt with List of AA meetings and [facility] for residential treatment (pt aware he will need to call until a bed opens) 3. DANITA provided pt with [facility], [facility], healthcare guide and community resources. Pt is referred to [facility] and [facility] for establishing primary care services. 4. Supportive counseling and discussed with RN. Pt denies other needs at this time.
[2019-02-25] MEDS: ENOXAPARIN 40 MG/0.4 ML SYRINGE. SQ SCH (09:00)
--- NOTE | 2019-02-25 09:24 | PDOC ---
Subjective: Subjective: Wants to go home, feels good. Eating and stooling without issue, no pain. Objective: Vital Signs: Vital Signs Date Time Temp Pulse Resp B/P (MAP) Pulse Ox O2 Delivery O2 Flow Rate FiO2 02/25/19 07:35 98.9 78 18 122/78 (93) 94 Room Air 98.9 Labs: Laboratory Tests Test 02/25/19 04:02 White Blood Count 6.7 x10^3/uL Red Blood Count 3.40 x10^6/uL Hemoglobin 11.8 g/dL Hematocrit 34.5 % Mean Corpuscular Volume 101 fL Mean Corpuscular Hemoglobin 35 pg Mean Corpuscular Hemoglobin Concent 34 g/dL Red Cell Distribution Width 14.9 % Platelet Count 93 x10^3/uL Neutrophils (%) (Auto) 55 % Lymphocytes (%) (Auto) 24 % Monocytes (%) (Auto) 19 % Eosinophils (%) (Auto) 1 % Basophils (%) (Auto) 1 % Neutrophils # (Auto) 3.7 x10^3/uL Lymphocytes # (Auto) 1.6 x10^3/uL Monocytes # (Auto) 1.3 x10^3/uL Eosinophils # (Auto) 0.0 x10^3/uL Basophils # (Auto) 0.0 x10^3/uL Sodium Level 134 mmol/L Potassium Level 3.6 mmol/L Chloride Level 99 mmol/L Carbon Dioxide Level 28 mmol/L Anion Gap 7 Blood Urea Nitrogen 3 mg/dL Creatinine 0.7 mg/dL Estimated GFR (Cockcroft-Gault) 129.1 BUN/Creatinine Ratio 4 Glucose Level 88 mg/dL Calcium Level 8.9 mg/dL Total Bilirubin 9.0 mg/dL Aspartate Amino Transf (AST/SGOT) 196 U/L Alanine Aminotransferase (ALT/SGPT) 98 U/L Alkaline Phosphatase 257 U/L Total Protein 6.6 g/dL Albumin 2.3 g/dL Albumin/Globulin Ratio 0.5 Imaging: Abd US Impression: Sludge within the gallbladder. Minimal pericholecystic fluid and wall thickening. Correlate for possibility of underlying cholecystitis. Fatty infiltration of the liver. Hepatomegaly. Subtle nodular contour of the liver which raises question of cirrhosis. PE: GEN: NAD LUNGS: CTAB HEART: RRR ABD: NABS, S/ND/NT NEURO/PSYCH: A & O 3 A/P: Alcoholic hepatitis -- DC per primary. Will take awhile for bilirubin to normalize. Last drink Thursday - advised not to restart. MAME MARTE Feb 25, 2019 09:24
[2019-02-25] MEDS: PANTOPRAZOLE 40 MG TABLET.DR. PO SCH (09:32)
[2019-02-25] MEDS: MULTIVIT INFUSN,ADULT 4,VIT K 10 ML, THIAMINE INJ 100 MG, FOLIC ACID INJ 1 MG in IV NOR... IV SCH (09:33)
[2019-02-25 11:44] VITALS: BP 102/62
--- NOTE | 2019-02-25 12:21 | PDOC3 ---
Discharge Summary Date of Admission: Feb 23, 2019 Date of Discharge: Feb 25, 2019 Follow-Up: 3-5 days Admitting Diagnosis comment: discharge dx 1. severe alcohol abuse 2. severe hypokalemia 3. 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 Wall thickening of the left-sided colon from the splenic flexure to the rectum and mild hypervascular enhancement of the rectum raising suspicion of low-grade colitis. 5. ELEVATED LIPASE 6. Hepatomegaly and probable HEPATIC steatosis 7. Depression// anxiety 8. SEVERE protein-caloric malnutrition 9. THROMBOCYTOPENIA sec splenomegaly likely// etoh 10.Sludge within the gallbladder. Minimal pericholecystic fluid and wall thickening. Correlate for possibility of underlying cholecystitis. ok for d/c by gi plan admit ct abd/ pelvis REVIEWED banana bag, iv fluid support alcohol withdrawal precautions dvt prophylaxis gi prophylaxis REPLACE K GI following abd sono acute hepatitis dx panel stool culture GGTP 33 MIN PT EXAM, CHART REVIEW d/c planning , > 50% OF TIME SPENT WITH EXAM, CHART REVIEW, PT CARE COORDINATION Vitals Vitals Vital Signs Date Time Temp Pulse Resp B/P (MAP) Pulse Ox O2 Delivery O2 Flow Rate FiO2 02/25/19 07:35 98.9 78 18 122/78 (93) 94 Room Air 98.9 Physical Exam General: Alert, Oriented X3, Cooperative, No acute distress Heart: Regular rate, Normal S1, Normal S2 Lungs: Clear Abdomen: Normal bowel sounds, Soft, No tenderness Extremities: No clubbing, No cyanosis, No edema Skin: No breakdown Labs LABS --- --------- PATIENT: NIKA BROWN ACCT: [id number] LOC: [address] [place] [address] U: [id number] AGE/SX: 33/M ROOM: [facility] RE02/23/[address]: MUNA KATHLEEN MD : 1985 BED: 1 DIS: STATUS: ADM IN TLOC: SPEC #: [id number] ANA MARIA: 02/23/19 STATUS: RES REQ #: [id number] RECD: 02/23/19 [facility] DR: MUNA KATHLEEN MD SOURCE: BLOOD ENTR: 02/23/[address]: ANTONY MONTAÑO APRN SPDESC: NO JORGE LUIS EUGENE MD, MICHAEL F MD ORDERED: BCULT Procedure Result FINAL DIAGNOSIS Problems Medical Problems: (1) Alcohol intoxication Status: Acute (2) Hypokalemia Status: Acute (3) Jaundice Status: Acute (4) Transaminitis Status: Acute Brief Hospital Course Mr. Brown is a 33 old [sex] who presented with [ alcohol abuse] CONDITION AT DISCHARGE: Improved Discharge Medications Current Medications Multivitamins 10 ml/Thiamine HCl 100 mg/Folic Acid 1 mg/Sodium Chloride 1,011.2 ml @ 1,000.088 mls/hr 1X ONCE IV Last administered on 02/23/19at 17:10; Start 02/23/19 at 17:00; Stop 02/23/19 at 18:00; Status DC Ondansetron HCl (Zofran) 4 mg 1X ONCE IVP Last administered on 02/23/19at 17:13; Start 02/23/19 at 16:45; Stop 02/23/19 at 16:46; Status DC Famotidine (Pepcid Vial) 20 mg 1X ONCE IVP Last administered on 02/23/19at 17:14; Start 02/23/19 at 16:45; Stop 02/23/19 at 16:46; Status DC Potassium Chloride (Klor-Con) 40 meq 1X ONCE PO Last administered on 02/23/19at 18:11; Start 02/23/19 at 18:15; Stop 02/23/19 at 18:17; Status DC Iohexol (Omnipaque 300 Mg/ml) 75 ml 1X ONCE IV Last administered on 02/23/19at 17:51; Start 02/23/19 at 17:45; Stop 02/23/19 at 17:46; Status DC Info (CONTRAST GIVEN -- Rx MONITORING) 1 each PRN DAILY PRN MC SEE COMMENTS; Start 02/23/19 at 17:45; Stop 02/25/19 at 17:44 Ondansetron HCl (Zofran) 4 mg PRN Q8HRS PRN IV NAUSEA/VOMITING; Start 02/23/19 at 18:00; Stop 02/24/19 at 17:59; Status DC Morphine Sulfate (Morphine Sulfate) 4 mg PRN Q2HR PRN IV PAIN; Start 02/23/19 at 18:00; Stop 02/24/19 at 17:59; Status DC Potassium Chloride/Dextrose/ Sod Cl 1,000 ml @ 75 mls/hr 1X ONCE IV Last administered on 02/23/19at 19:00; Start 02/23/19 at 18:00; Stop 02/24/19 at 07:19; Status DC Lorazepam (Ativan Inj) 2 mg PRN Q15MIN PRN IV SEE COMMENTS; Start 02/23/19 at 18:00 Multivitamins 10 ml/Thiamine HCl 100 mg/Folic Acid 1 mg/Sodium Chloride 1,011.2 ml @ 100 mls/ hr DAILY IV Last administered on 02/25/19at 09:33; Start 02/24/19 at 09:00; Stop 02/25/19 at 19:07 Multivitamins (Thera M Plus) 1 tab DAILY PO ; Start 02/26/19 at 09:00 Folic Acid (Folic Acid) 1 mg DAILY PO ; Start 02/26/19 at 09:00 Thiamine Mononitrate (Vitamin B-1) 100 mg DAILY PO ; Start 02/26/19 at 09:00 Lorazepam (Ativan) 4 mg PRN Q1HR PRN PO For CIWA 8-14; Start 02/23/19 at 18:15 Lorazepam (Ativan) 8 mg PRN Q1HR PRN PO For CIWA 15 or greater; Start 02/23/19 at 18:15 Lorazepam (Ativan Inj) 2 mg PRN Q1HR PRN IV For CIWA 8-14; Start 02/23/19 at 18:15 Lorazepam (Ativan Inj) 4 mg PRN Q1HR PRN IV For CIWA 15 or greater; Start 02/23/19 at 18:15 Clonidine HCl (Catapres) 0.1 mg PRN Q1HR PRN PO SBP > 180 or DBP > 100, MRX3; Start 02/23/19 at 18:15 Sodium Chloride (Normal Saline Flush) 3 ml QSHIFT PRN IV AFTER MEDS AND BLOOD DRAWS; Start 02/23/19 at 18:15 Ondansetron HCl (Zofran) 4 mg PRN Q4HRS PRN IV NAUSEA/VOMITING; Start 02/23/19 at 18:15 Acetaminophen (Tylenol) 650 mg PRN Q4HRS PRN PO TEMP OVER 100.4F OR MILD PAIN; Start 02/23/19 at 18:15 Clonidine HCl (Catapres) 0.1 mg PRN Q6HRS PRN PO SBP>160 OR DBP>90; Start 02/23/19 at 18:15; Stop 02/24/19 at 16:13; Status DC Docusate Sodium (Colace) 100 mg PRN BID PRN PO CONSTIPATION; Start 02/23/19 at 18:15 Albuterol Sulfate (Ventolin Neb Soln) 2.5 mg PRN Q4HRS PRN NEB SHORTNESS OF BREATH; Start 02/23/19 at 18:15 Guaifenesin (Robitussin) 200 mg PRN Q4HRS PRN PO COUGH; Start 02/23/19 at 18:15 Lorazepam (Ativan) 0.5 mg PRN Q4HRS PRN PO ANXIETY / AGITATION Last administered on 02/24/19at 14:24; Start 02/23/19 at 18:15 Lorazepam (Ativan Inj) 2 mg PRN Q4HRS PRN IV ANXIETY / AGITATION; Start 02/23/19 at 18:15 Enoxaparin Sodium (Lovenox 40mg Syringe) 40 mg DAILY SQ Last administered on 02/24/19at 09:33; Start 02/24/19 at 09:00 Pantoprazole Sodium (Protonix) 40 mg DAILY08 PO Last administered on 02/25/19at 09:32; Start 02/23/19 at 19:45 Potassium Chloride (Klor-Con) 40 meq 1X ONCE PO ; Start 02/23/19 at 19:45; Stop 02/23/19 at 19:46; Status DC Potassium Chloride (Klor-Con) 40 meq 1X ONCE PO Last administered on 02/24/19at 09:38; Start 02/24/19 at 09:00; Stop 02/24/19 at 09:05; Status DC Potassium Chloride (Klor-Con) 20 meq DAILYWBKFT PO Last administered on 02/08 12/27at 09:32; Start 02/25/19 at 08:00 Vital Signs Vital Signs Date Time Temp Pulse Resp B/P (MAP) Pulse Ox O2 Delivery O2 Flow Rate FiO2 02/25/19 11:44 98.4 82 18 102/62 (75) 97 Room Air 98.4 Labs Laboratory Tests Test 02/23/19 16:30 02/23/19 17:00 02/24/19 06:05 02/25/19 04:02 Urine Collection Type Unknown Urine Color [place] Urine Clarity Clear Urine pH 7.5 Urine Specific [place] 1.015 Urine Protein Negative mg/dL (NEG-TRACE) Urine Glucose (UA) Negative mg/dL (NEG) Urine Ketones (Stick) Trace mg/dL (NEG) Urine Blood Negative (NEG) Urine Nitrite Negative (NEG) Urine Bilirubin Large (NEG) Urine Urobilinogen Dipstick 1.0 mg/dL (0.2 mg/dL) Urine Leukocyte Esterase Small (NEG) Urine RBC 0 /HPF (0-2) Urine WBC Occ /HPF (0-4) Urine Squamous Epithelial Cells Many /LPF Urine Bacteria Mod /HPF (0-FEW) Urine Mucus Marked /LPF Urine Opiates Screen Neg (NEG) Urine Methadone Screen Neg (NEG) Urine Barbiturates Neg (NEG) Urine Phencyclidine Screen Neg (NEG) Urine Amphetamine/Methamphetamine Neg (NEG) Urine Benzodiazepines Screen Neg (NEG) Urine Cocaine Screen Neg (NEG) Urine Cannabinoids Screen Neg (NEG) Urine Ethyl Alcohol Neg (NEG) White Blood Count 8.1 x10^3/uL (4.0-11.0) 5.7 x10^3/uL (4.0-11.0) 6.7 x10^3/uL (4.0-11.0) Red Blood Count 3.76 x10^6/uL (4.30-5.70) 3.56 x10^6/uL (4.30-5.70) 3.40 x10^6/uL (4.30-5.70) Hemoglobin 13.0 g/dL (13.0-17.5) 12.3 g/dL (13.0-17.5) 11.8 g/dL (13.0-17.5) Hematocrit 37.4 % (39.0-53.0) 35.8 % (39.0-53.0) 34.5 % (39.0-53.0) Mean Corpuscular Volume 100 fL (79-100) 100 fL (79-100) 101 fL (79-100) Mean Corpuscular Hemoglobin 35 pg (25-35) 35 pg (25-35) 35 pg (25-35) Mean Corpuscular Hemoglobin Concent 35 g/dL (31-37) 34 g/dL (31-37) 34 g/dL (31-37) Red Cell Distribution Width 14.8 % (11.5-14.5) 14.7 % (11.5-14.5) 14.9 % (11.5-14.5) Platelet Count 76 x10^3/uL (140-400) 74 x10^3/uL (140-400) 93 x10^3/uL (140-400) Neutrophils (%) (Auto) 68 % (31-73) 62 % (31-73) 55 % (31-73) Lymphocytes (%) (Auto) 11 % (24-48) 19 % (24-48) 24 % (24-48) Monocytes (%) (Auto) 20 % (0-9) 18 % (0-9) 19 % (0-9) Eosinophils (%) (Auto) 0 % (0-3) 1 % (0-3) 1 % (0-3) Basophils (%) (Auto) 1 % (0-3) 1 % (0-3) 1 % (0-3) Neutrophils # (Auto) 5.5 x10^3/uL (1.8-7.7) 3.5 x10^3/uL (1.8-7.7) 3.7 x10^3/uL (1.8-7.7) Lymphocytes # (Auto) 0.9 x10^3/uL (1.0-4.8) 1.1 x10^3/uL (1.0-4.8) 1.6 x10^3/uL (1.0-4.8) Monocytes # (Auto) 1.6 x10^3/uL (0.0-1.1) 1.0 x10^3/uL (0.0-1.1) 1.3 x10^3/uL (0.0-1.1) Eosinophils # (Auto) 0.0 x10^3/uL (0.0-0.7) 0.0 x10^3/uL (0.0-0.7) 0.0 x10^3/uL (0.0-0.7) Basophils # (Auto) 0.0 x10^3/uL (0.0-0.2) 0.0 x10^3/uL (0.0-0.2) 0.0 x10^3/uL (0.0-0.2) Segmented Neutrophils % 65 % (35-66) Band Neutrophils % 13 % (0-9) Lymphocytes % 9 % (24-48) Atypical Lymphocytes % (Manual) 1 % (0-0) Monocytes % 12 % (0-10) Toxic Vacuolation Slight Platelet Estimate Decreased (ADEQUATE) Prothrombin Time 14.3 SEC (11.7-14.0) Prothromb Time International Ratio 1.1 (0.8-1.1) Activated Partial Thromboplast Time 32 SEC (24-38) Sodium Level 131 mmol/L (136-145) 136 mmol/L (136-145) 134 mmol/L (136-145) Potassium Level 2.7 mmol/L (3.5-5.1) 3.3 mmol/L (3.5-5.1) 3.6 mmol/L (3.5-5.1) Chloride Level 92 mmol/L (98-107) 100 mmol/L (98-107) 99 mmol/L (98-107) Carbon Dioxide Level 27 mmol/L (21-32) 30 mmol/L (21-32) 28 mmol/L (21-32) Anion Gap 12 (6-14) 6 (6-14) 7 (6-14) Blood Urea Nitrogen 6 mg/dL (8-26) 4 mg/dL (8-26) 3 mg/dL (8-26) Creatinine 0.6 mg/dL (0.7-1.3) 0.7 mg/dL (0.7-1.3) 0.7 mg/dL (0.7-1.3) Estimated GFR (Cockcroft-Gault) 154.2 129.1 129.1 BUN/Creatinine Ratio 10 (6-20) 4 (6-20) Glucose Level 102 mg/dL (70-99) 78 mg/dL (70-99) 88 mg/dL (70-99) Calcium Level 9.9 mg/dL (8.5-10.1) 8.7 mg/dL (8.5-10.1) 8.9 mg/dL (8.5-10.1) Total Bilirubin 11.3 mg/dL (0.2-1.0) 9.8 mg/dL (0.2-1.0) 9.0 mg/dL (0.2-1.0) Aspartate Amino Transf (AST/SGOT) 326 U/L (15-37) 243 U/L (15-37) 196 U/L (15-37) Alanine Aminotransferase (ALT/SGPT) 141 U/L (16-63) 112 U/L (16-63) 98 U/L (16-63) Alkaline Phosphatase 304 U/L (46-116) 260 U/L (46-116) 257 U/L (46-116) Total Protein 7.6 g/dL (6.4-8.2) 7.0 g/dL (6.4-8.2) 6.6 g/dL (6.4-8.2) Albumin 2.7 g/dL (3.4-5.0) 2.4 g/dL (3.4-5.0) 2.3 g/dL (3.4-5.0) Albumin/Globulin Ratio 0.6 (1.0-1.7) 0.5 (1.0-1.7) Lipase 405 U/L (73-393) Salicylates Level < 0.2 mg/dL (2.8-20.0) Salicylate Last Dose Date Unk Salicylate Last Dose Time Unk Acetaminophen Level < 2.0 mcg/ml (10-30) Acetaminophen Last Dose Date Unk Acetaminophen Last Dose Time Unk Ethyl Alcohol Level < 10 mg/dL (0-10) Direct Bilirubin 7.8 mg/dL (0.0-0.2) Hepatitis A IgM Antibody Nonreactive (Nonreactive) Hepatitis B Surface Antigen Nonreactive (Nonreactive) Hepatitis B Core IgM Antibody Nonreactive (Nonreactive) Hepatitis C IgG Antibody Nonreactive (Nonreactive) Gamma Glutamyl Transpeptidase 1479 U/L (10-85) Laboratory Tests Test 02/25/19 04:02 White Blood Count 6.7 x10^3/uL (4.0-11.0) Red Blood Count 3.40 x10^6/uL (4.30-5.70) Hemoglobin 11.8 g/dL (13.0-17.5) Hematocrit 34.5 % (39.0-53.0) Mean Corpuscular Volume 101 fL (79-100) Mean Corpuscular Hemoglobin 35 pg (25-35) Mean Corpuscular Hemoglobin Concent 34 g/dL (31-37) Red Cell Distribution Width 14.9 % (11.5-14.5) Platelet Count 93 x10^3/uL (140-400) Neutrophils (%) (Auto) 55 % (31-73) Lymphocytes (%) (Auto) 24 % (24-48) Monocytes (%) (Auto) 19 % (0-9) Eosinophils (%) (Auto) 1 % (0-3) Basophils (%) (Auto) 1 % (0-3) Neutrophils # (Auto) 3.7 x10^3/uL (1.8-7.7) Lymphocytes # (Auto) 1.6 x10^3/uL (1.0-4.8) Monocytes # (Auto) 1.3 x10^3/uL (0.0-1.1) Eosinophils # (Auto) 0.0 x10^3/uL (0.0-0.7) Basophils # (Auto) 0.0 x10^3/uL (0.0-0.2) Sodium Level 134 mmol/L (136-145) Potassium Level 3.6 mmol/L (3.5-5.1) Chloride Level 99 mmol/L (98-107) Carbon Dioxide Level 28 mmol/L (21-32) Anion Gap 7 (6-14) Blood Urea Nitrogen 3 mg/dL (8-26) Creatinine 0.7 mg/dL (0.7-1.3) Estimated GFR (Cockcroft-Gault) 129.1 BUN/Creatinine Ratio 4 (6-20) Glucose Level 88 mg/dL (70-99) Calcium Level 8.9 mg/dL (8.5-10.1) Total Bilirubin 9.0 mg/dL (0.2-1.0) Gamma Glutamyl Transpeptidase 1479 U/L (10-85) Aspartate Amino Transf (AST/SGOT) 196 U/L (15-37) Alanine Aminotransferase (ALT/SGPT) 98 U/L (16-63) Alkaline Phosphatase 257 U/L (46-116) Total Protein 6.6 g/dL (6.4-8.2) Albumin 2.3 g/dL (3.4-5.0) Albumin/Globulin Ratio 0.5 (1.0-1.7) Allergies Allergies Coded Allergies Type Severity Reaction Last Updated Verified No Known Drug Allergies 11/13/18 No Disposition/Orders: D/C to Home Patient Instructions d/c planning 33 min MUNA KATHLEEN MD Feb 25, 2019 12:21
[2019-02-25] MEDS ORDERED: PANT40TA77 PO (12:24)
[2019-02-25] MEDS ORDERED: MULT1TAB90 PO (12:24)
[2019-02-25] MEDS ORDERED: THIA100T22 PO (12:24)
[2019-02-25] MEDS ORDERED: Folic Acid PO (12:24)
--- NOTE | 2019-02-25 12:25 | DISCH ---
DISCHARGE INSTRUCTIONS Condition on Discharge Condition on Discharge: Stable Activity After Discharge Activity Instructions for Disc: Activity as tolerated Lifting Instructions after Dis: No heavy lifting, No pulling or pushing Driving Instructions after Dis: Do not drive today Diet after Discharge Diet after Discharge: Regular Liquid Texture: Thin Liquid Checks after Discharge Checks after discharge: Check blood press - daily Contacting the DRTessie after DC Call your doctor for: If your condition worsens Warfarin Follow-Up Warfarin Follow UP: attend aa daily, no alcohol intake ever MUNA KATHLEEN MD Feb 25, 2019 12:25
[2019-02-26] MEDS ORDERED: FOLIC ACID 1 MG TABLET. PO SCH (09:00)
[2019-02-26] MEDS ORDERED: THIAMINE 100 MG TABLET. PO SCH (09:00)
[2019-02-26] MEDS ORDERED: MULTIVITAMIN with MINERAL TABLET. PO SCH (09:00)
== END 2019-02-25 15:00 | disposition home or self-care (01) | DRG 432 ==
LOC: ER 16:19 → 6 SOUTH 17:05
PROVIDERS: ADMIT Family Medicine; ATTEND Family Medicine
DX: K70.10 Alcoholic hepatitis without ascites (principal); E43 Unspecified severe protein-calorie malnutrition; J98.11 Atelectasis; F10.229 Alcohol dependence with intoxication, unspecified; D69.6 Thrombocytopenia, unspecified; E87.6 Hypokalemia; F17.210 Nicotine dependence, cigarettes, uncomplicated; F32.9 Major depressive disorder, single episode, unspecified; F41.0 Panic disorder [episodic paroxysmal anxiety]; K52.9 Noninfective gastroenteritis and colitis, unspecified; K74.60 Unspecified cirrhosis of liver; Z80.1 Family history of malignant neoplasm of trachea, bronchus and lung; Z68.28 Body mass index [BMI] 28.0-28.9, adult; Z79.899 Other long term (current) drug therapy
CPT/HCPCS: 36415; 74177; 76700; 80048; 80053; 80076; 80307; 80329; 81001; 82977; 83690; 85007; 85025; 85610; 85730; 86705; 86709; 86803; 87040; 87045; 87340; 93005; 96365; 96367; 96375; G0480; J1650; J2405; J3490; J7030; Q9967; 99285-25; G0378